=== PATIENT | male | born 1940 | race Caucasian/White ===

== ENCOUNTER 2016-12-12 14:12 | Emergency (ER) | payer MEDICARE, OTHER ==
[~2016-12-12] VITALS: Ht 167.6 cm; Wt 59.0 kg
[~2016-12-12 14:12] MED LIST: ALEVE220 M1 PO; B-121000 MC1 SL; BIOTIN5 MG PO; CENTRAL VITE F1 EACH PO; COQ-10100 MG PO; D3 + K2 DOTS 11 EACH PO; DEPAKOTE500 MG PO; DIVALPROEX SOD250 MG PO; KEFLEX500 MG PO; LEVOTHYROXINE50 MCG PO; NATURAL LUTEIN20 MG PO; NORCO 5-325 TA1 EACH PO; OMEPRAZOLE20 MG PO
[2016-12-12] MEDS ORDERED: DURAGESIC1 EACH TD (14:27)
[2017-03-09] MEDS ORDERED: CLARITIN10 MG PO (15:05)
== END 2016-12-12 21:47 | disposition home or self-care (01) ==
LOC: ED 14:12
DX: G50.0 Trigeminal neuralgia (principal); E78.00 Pure hypercholesterolemia, unspecified; K21.9 Gastro-esophageal reflux disease without esophagitis; E03.9 Hypothyroidism, unspecified; Z79.899 Other long term (current) drug therapy
CPT/HCPCS: 80053; 85025; 96361; 96374; 99283; J7030

== ENCOUNTER 2017-02-09 10:11 | Inpatient (IN) | payer MEDICARE, OTHER ==
[~2017-02-09] VITALS: Ht 167.6 cm; Wt 56.1 kg
[~2017-02-09 10:11] MED LIST changes: +DURAGESIC1 EACH TD
--- NOTE | 2017-02-09 14:20 | NUR ---
PT ARRIVED TO ROOM 111 AT THIS TIME. PT REPORTS DISCOMFORT FROM RIGHT EYE AT THIS TIME, MILD. TWO PERSON ASSIST FROM WHEELCHAIR TO BED, WITH TWO CANES.
--- NOTE | 2017-02-09 14:51 | NUR ---
DR. ARMENDARIZ IN TO SEE PATIENT.
[2017-02-09] MEDS ORDERED: LIQUITEARS15 ML OD (15:04)
[2017-02-09] MEDS ORDERED: LOVENOX40 MG/0.4 SUB-Q (15:09)
[2017-02-09] MEDS ORDERED: OXYCODONE HCL5 MG PO (15:10)
[2017-02-09] MEDS ORDERED: SENNA-DOCUSATE1 EAC1 PO (15:11)
[2017-02-09] MEDS ORDERED: ADVANCED EYE R3.5 GM OPTH (15:15)
[2017-02-09] MEDS ORDERED: TYLENOL325 MG PO (15:17)
[2017-02-09] MEDS ORDERED: VITAMIN C500 M1 PO (15:18)
--- NOTE | 2017-02-09 15:19 | NUR ---
MED REC COMPLETE WITH [facility] DISCHARGE NOTE.
--- NOTE | 2017-02-09 15:28 | NUR ---
EYE DROPS INSTILLED IN RIGHT EYE. PATIENT TOLERATED WELL, RESTING IN BED, DENIES NEEDS AT THIS TIME.
--- NOTE | 2017-02-09 15:30 | NUR ---
PT DOING WELL JUST GOT CHECKED IN BY NURSE MICAELA
--- NOTE | 2017-02-09 16:27 | NUR ---
SPEECH THERAPY IN TO EVALUATE PATIENT. PATIENT IS OKAY TO STAY ON SOFT DIET WITH THIN LIQUIDS. OKAY TO USE STRAW. OCCUPATIONAL THERAPY AND PHYSICAL THERAPY IN TO EVALUATE PATIENT.
--- NOTE | 2017-02-09 17:32 | NUR ---
PATIENT ARRIVED FROM [facility] TODAY. PATIENT IS DOING WELL AND DENYING NEED FOR PAIN MEDICATION. PATIENT PASSED SWALLOW EVALUATION AND HAS ORDERED A SOFT DIET FOR DINNER. PATIENT HAS CLOTHES TO WEAR AND HAS REQUESTED ATTENDS TO BE PROVIDED. WALKER IN ROOM TO USE IN PLACE OF PATIENT'S USUAL DUAL CANES. 1700 SENNOKOT GIVEN WITH SIP OF WATER AND PATIENT TOLERATED WELL WITH NO COUGHING.
--- NOTE | 2017-02-09 17:53 | NUR ---
PATIENT CHANGED INTO HOME CLOTHES, FRESH ATTENDS. PATIENT VOIDED IN URINAL WITH HELP. 1-2 ASSIST WITH WALKER. PATIENT SITTING UP IN CHAIR FOR DINNER.
--- NOTE | 2017-02-09 18:47 | NUR ---
PT IN CHAIR. SET UP FOR DINNER.
--- NOTE | 2017-02-09 20:45 | NUR ---
pt appeared asleep when entering room. pt woke to rn in room. stated "i have been sleeping really well all night," oriented pt to time, pt oriented easily. no complaints of pain or headache at this time. changed attends and bedding, pt incontinent of urine and bm. pt has fresh water at bedside. call light in reach. lights and tv off in room.
--- NOTE | 2017-02-09 23:42 | NUR ---
changed pt's attends, pt incontinent of urine. pt also complained of 5/10, gave tylenol for pain. pt has no further needs. call light in reach. lights and tv off in room.
--- NOTE | 2017-02-09 23:44 | NUR ---
URINE INCONTINENT ATTENDS CHANGED.
--- NOTE | 2017-02-10 02:37 | NUR ---
PT APPEARS ASLEEP. LIGHTS AND TV OFF IN ROOM.
--- NOTE | 2017-02-10 03:24 | NUR ---
PATIENT CALLED WANTED TO BE CHANGED WET ATTENDS, DONE. CALL LIGHT WITHIN REACH.
--- NOTE | 2017-02-10 05:11 | NUR ---
PT HAD UNEVENTFUL NIGHT. SLEPT MAJORITY OF SHIFT. EYE DROPS Q2H WHILE AWAKE. HEADACHE PAIN WELL CONTROLLED WITH TYLENOL. BM LAST NIGHT. INCONTINENT OF URINE. PT ALERT AND ORIENTED BUT FORGETFUL AT TIMES, REORIENTS EASILY. USES CALL LIGHT APPROPRIATLY. PT/OT/ST. EYE PATCH TO RIGHT EYE. INCISION BEHIND RIGHT EAR APPEARS TO BE HEELING WELL AND IS WELL APPROXIMATED. 1 PERSON ASSIST.
--- NOTE | 2017-02-10 05:31 | NUR ---
PATIENT CALLED. CHANGED WET ATTENDS.
--- NOTE | 2017-02-10 06:47 | NUR ---
changed attends, pt incontinent of urine. eye drops administered.
--- NOTE | 2017-02-10 06:49 | NUR ---
PATIENT CALLED. CHANGED WET ATTENDS.
--- NOTE | 2017-02-10 07:15 | NUR ---
RECIEVED REPORT FROM MECHANIC MARINE ENGINE NURSE. PATIENT RESTING SUPINE IN BED. DENIES NEEDS AT THIS TIME. CALL LIGHT IN REACH.
--- NOTE | 2017-02-10 08:54 | NUR ---
CARE CONFERENCE TEAM IN TO SEE PATIENT. PATIENT HAVING BREAKFAST & REQUESTS FOR PAIN MEDICAITON. TYLENOL GIVEN. CALL LIGHT IN REACH.
--- NOTE | 2017-02-10 09:51 | NUR ---
FAXED ACTIVITY ASSESSMENT NOTICE TO SIMON HERNANDEZ PT
--- NOTE | 2017-02-10 10:11 | NUR ---
PATIENT RESTING UP IN CHAIR. PATIENT CHANGED FOR URINARY INCONTINENCE. STATES HE IS STILL HAVING SOME PAIN AROUND HIS INCISION AND IN HIS R EAR. PATIENT DENIES THE NEED FOR MORE PAIN MEDICATION. LUNGS CLEAR, HR REGULAR, BS ACTIVE. PATIENT DENIES FURTHER NEEDS. CALL LIGHT IN REACH.
--- NOTE | 2017-02-10 10:15 | NUR ---
PATIENT SITTING UP IN CHAIR WITH EYES CLOSED. CALL BUTTON IN REACH. FRESH ICE WATER. TALKED TO PATIENT ABOUT A SHAVE AND SHOWER LATER TODAY. NO OTHER NEEDS AT THIS TIME.
--- NOTE | 2017-02-10 10:37 | NUR ---
PHYSICAL THERAPY IN TO SEE PATIENT.
--- NOTE | 2017-02-10 11:47 | NUR ---
PATIENT SITTING UP IN CHAIR WITH EYE CLOSED.
--- NOTE | 2017-02-10 12:41 | NUR ---
PATIENT UP IN CHAIR EATING LUNCH W/O DIFFICULTY. CALL LIGHT IN REACH.
--- NOTE | 2017-02-10 13:32 | NUR ---
PATIENT RESTING IN CHAIR. PATIENT EXPRESSED THAT HE HAS BEEN FEELING DEPRESSED LATELY. SAT AND TALKED WITH PATIENT FOR ABOUT 20 MINUTES UNTIL OCCUPATIONAL THERAPY CAME IN TO WORK WITH HIM. TYLENOL ADMINISTERED FOR 2/10 PAIN NEAR INCISION SITE. CALL LIGHT IN REACH.
--- NOTE | 2017-02-10 13:48 | NUR ---
SPEECH THERAPY WORKING WITH PATIENT.
--- NOTE | 2017-02-10 14:26 | NUR ---
ASSISTED PT TO BATHROOM. PATIENT CONTINENT OF URINE. NEW BRIEF PLACED ALTHOUGH OLD ONE WAS DRY. THE PLAN WAS TO GO FOR A WALK AROUND THE MS UNIT, HOWEVER THE PATIENT DEVELOPED PAIN IN HIS R EAR. STATES THE PAIN FEELS LIKE THROBBING PAIN. ADMINISTERED PAIN MEDICATION PER MAR. PATIENT BACK IN CHAIR. CALL LIGHT IN REACH. DENIES FURTHER NEEDS.
--- NOTE | 2017-02-10 14:43 | NUR ---
PATIENT RESTING WITH EYES CLOSED. RESPIRATIONS EVEN UNLABORED.
--- NOTE | 2017-02-10 14:48 | NUR ---
PATIENT SLEEPING UP IN CHAIR. CALL LIGHT IN REACH.
--- NOTE | 2017-02-10 15:11 | NUR ---
PATIENT HAS HAD SEVERAL PEOPLE INTO WORK WITH HIM TODAY. PATIENT NOW RESTING WITH HIS EYES CLOSED.
--- NOTE | 2017-02-10 15:27 | NUR ---
PATIENT RESTING UP IN CHAIR. SON IN ROOM VISITING. PATIENT STATES HIS PAIN IS WELL CONTROLLED AFTER PAIN MEDICATION. DENIES NEEDS. CALL LIGHT IN REACH.
--- NOTE | 2017-02-10 15:49 | NUR ---
PHYSICAL THERAPY IN TO WORK WITH PATIENT.
--- NOTE | 2017-02-10 16:30 | NUR ---
ORDERED PATIENT DINNER. OFFERED TO ASSIST WITH SHOWER, PATIENT REFUSED AND STATES HE WOULD RATHER TAKE ONE TOMORROW. NO C/O PAIN. PATIENT DENIES FURTHER NEEDS.
--- NOTE | 2017-02-10 16:40 | NUR ---
PATIENT HAS BEEN TEARFUL TODAY, IN BETTER SPIRITS THIS EVENING. WORKED WELL WITH PHYSICAL THERAPY X 2 TODAY. PATIENT HAS BEEN DOING WELL WITH HIS TWO CANES. TYLENOL GIVEN FOR PAIN X 3 TODAY, OXYCODONE GIVEN X 1. PAIN IS LOCATED NEAR INCISION AND IN R EAR. PATIENT WOULD LIKE TO SHOWER TOMORROW INSTEAD OF THIS EVENING.
--- NOTE | 2017-02-10 18:43 | NUR ---
ASSISTED PT TO BATHROOM. BRIEF FOUND DRY. PATIENT VOIDED. PATIENT NOW IN BED. DENIES NEEDS. SPOUSE IN TO VISIT.
--- NOTE | 2017-02-10 19:30 | NUR ---
TYLENOL GIVEN FOR 6/10 PAIN. PT LAYING IN BED, PLEASENT DEMEANOR, FLAT AFFECT. ALERT AND ORIENTED X4. EYE DROPS ADMINISTERED. PT REPORTS THE PAIN IS IN THE RIGHT SIDE OF HIS HEAD BUT MOSTLY IN HIS RIGHT EAR. PT HAS CALL LIGHT. FRESH ICE WATER AT BEDSIDE.
--- NOTE | 2017-02-10 20:00 | NUR ---
patient incontinent of urine, changed depend. whiteboard updated, room tidied. declined fresh ice water at this time.
--- NOTE | 2017-02-10 20:05 | NUR ---
PT STOOD AT BEDSIDE AND VOIDED IN URINAL. PT TOLERATED STANDING WELL. PT BACK IN BED.
--- NOTE | 2017-02-10 21:40 | NUR ---
patient called to say top of his head hurts, raised head of bed and told him to call if it doesn't get better. nurse notified
--- NOTE | 2017-02-10 22:10 | NUR ---
PT COMPLAINED OF 8/10 PAIN IN HIS RIGHT EAR. GAVE OXYCODONE FOR PAIN. EYE PATCH IN PLACE. EYE DROPS ADMINISTERED.
--- NOTE | 2017-02-10 22:30 | NUR ---
PATIENT INCONTINENT OF URINE AND STOOL. CHANGED DEPEND AND PERFORMED VASQUEZ CARE.
--- NOTE | 2017-02-10 22:40 | NUR ---
PATIENT INCONTINENT OF URINE. CHANGED DEPEND, PERFORMED VASQUEZ CARE. BOOSTED PATIENT UP IN BED.
--- NOTE | 2017-02-10 23:57 | NUR ---
patient asleep in room doing well.
--- NOTE | 2017-02-11 02:05 | NUR ---
PT APPEAR TO BE SLEEPING. RR WNL AND UNLABORED. LIGHTS AND TV OFF IN ROOM.
--- NOTE | 2017-02-11 02:27 | NUR ---
PATIENT IN BED ASLEEP
--- NOTE | 2017-02-11 02:54 | NUR ---
pt incontinent of urine. cleaned pt up and changed attends. pt had smear bm. re-positioned pt. pt has no further needs. call light in reach.
--- NOTE | 2017-02-11 02:56 | NUR ---
NURSE IN ROOM
--- NOTE | 2017-02-11 03:52 | NUR ---
NURSE IN ROOM
--- NOTE | 2017-02-11 04:38 | NUR ---
PATIENT CALLED TO HAVE TV TURNED DOWN
--- NOTE | 2017-02-11 05:20 | NUR ---
pt complained of 8/10 pain in his right ear, gave oxycodone for pain. pt incontinent of urine, changed attends. re-positioned pt in bed. call light in reach. no further needs.
--- NOTE | 2017-02-11 06:43 | NUR ---
PT SLEPT MOST OF SHIFT. GAVE OXYCODONE FOR PAIN X2, SEEMS TO WORK WELL FOR HIM. PT DEPRESSED ABOUT HIS CONDITION, GETS TEARY EYED OFTEN. INCONTINENT OF URINE AND BM. 1 PERSON ASSIST WITH 2 CANES TO AMBULATE, WORKED WITH PHYSICAL THERAPY YESTERDAY PER DAYSHIFT RN. PT ALERT AND ORIENTED X4. PLEASENT DEMEANOR BUT FLAT AFFECT.
--- NOTE | 2017-02-11 07:19 | NUR ---
RECIEVED REPORT FROM CATERERS HELPER NURSE. PATIENT RESTING IN BED. INCONT OF URINE. DISH ROOM WORKER ASSISTED PATIENT WITH BRIEF CHANGE AND PERICARE. PATIENT NOW SITTING UP IN CHAIR WAITING ON BREAKFAST. DENIES NEEDS AT THIS TIME. CALL LIGHT IN REACH.
--- NOTE | 2017-02-11 07:32 | NUR ---
pt. was incontinent of urine, changed his linen and got him up to his chair for breakfast. Put his sweatpants on, got him fresh ice water and a warm blanket
--- NOTE | 2017-02-11 08:30 | NUR ---
REPOSITIONED PATIENT ON L SIDE IN CHAIR. BLANCHABLE REDNESS NOTED ON COCCYX. FINE CRACKLES HEARD IN L LUNG BASE, ENCOURAGED INCENTIVE SPIROMETER, PATIENT ABLE TO REACH 1500ML. TRACE EDEMA ON R FOOT, +1 ON L FOOT. ENCOURAGED PATIENT TO KEEP BLE ELEVATED. PATIENT C/O PAIN IN R EAR-HE HAS TROUBLE EXPLAINING WHAT THE PAIN FEELS LIKE. STATES IT FEELS LIKE THERE IS WATER IN HIS HEAD NEAR HIS EAR. TYLENOL ADMINISTERED. ENCOURAGED PATIENT TO USE CALL LIGHT IF TYLENOL DOES NOT TREAT HIS PAIN. CALL LIGHT IN REACH.
--- NOTE | 2017-02-11 09:43 | NUR ---
PT IS SITTING UP IN CHAIR WITH FEET ELEVATED AND CALL LIGHT IN REACH. PT WASHED FACE AND HANDS WITH A WARM WASH CLOTH. PT ALSO BRUSHED TEETH AND USED MOUTH WASH. PT AGREED TO A SHOWER BUT WOULD LIKE TO WAIT TILL 1100
--- NOTE | 2017-02-11 10:45 | NUR ---
AMBULATED WITH PATIENT DOWN HALLWAY WITH GAIT BELT. PATIENT STATES HE FEELS A BIT UNSTEADY TODAY. C/O THROBBING PAIN 10/08 DIRECTLY BEHIND INCISION. ADMINISTERED PAIN MEDICATION PER APR. PATIENT BACK TO CHAIR WITH PILLOWS POSITIONED TO KEEP HIM OFF HIS COCCYX. WAITING FOR PAIN MEDICATION TO TAKE EFFECT BEFORE SHOWER. PATIENT DENIES FURTHER NEEDS. CALL LIGHT IN REACH.
--- NOTE | 2017-02-11 11:44 | NUR ---
PATIENT UP IN CHAIR HAVING LUNCH. NO C/O PAIN AT THIS TIME. CALL LIGHT IN REACH.
--- NOTE | 2017-02-11 12:39 | NUR ---
FRIEND IN TO VISIT. PATIENT UP IN CHAIR. MEAL TRAY REMOVED, PATIENT ATE ABOUT 25%. DENIES NEEDS AT THIS TIME. CALL LIGHT IN REACH.
--- NOTE | 2017-02-11 13:48 | NUR ---
PATIENT UP TO SHOWER WITH ASSISTANCE. AMBULATED HALLWAY WITH WALKER AND THEN CANES. ONCE BACK TO THE ROOM, PATIENT C/O THROBBING PAIN R SIDE HEAD BEHIND INCISION. TYLENOL ADMINISTERED. PATIENT SITTING UP IN CHAIR, PILLOWS PLACED TO KEEP PRESSURE OFF COCCYX, REDNESS HAS REDUCED SINCE THIS MORNING. PATIENT VOIDED IN URINAL. DENIES FURTHER NEEDS. CALL LIGHT IN REACH.
--- NOTE | 2017-02-11 15:13 | NUR ---
PATIENT RECIEVING FACIAL MASSAGE. SPOUSE AT BEDSIDE. PATIENT DENIES NEEDS.
--- NOTE | 2017-02-11 15:18 | NUR ---
PT IS SITTING UP IN CHAIR WITH CALL LIGHT IN REACH. PT ASKED FOR ICE WATER.
--- NOTE | 2017-02-11 15:55 | NUR ---
PATIENT STOOD AT THE SIDE OF THE CHAIR AND WET ATTEND CHANGED AT THIS TIME. PATIENT NEEDED A 1 PERSON ASSIST ONLY.
--- NOTE | 2017-02-11 16:25 | NUR ---
PATIENT WORKING WITH PHYSICAL THERAPY AT THIS TIME. AMBULATING HALLWAY.
--- NOTE | 2017-02-11 17:19 | NUR ---
PATIENT C/O PAIN 5/10 BEHIND INCISION AND R EAR. STATES THE PAIN IS THROBBING. I HAVE NOTICED PATIENT COMPLAINS OF PAIN MOSTLY AFTER ACTIVITY. ADMINISTERED PAIN MEDICATION PER MAR. TOILETING OFFERED. ENCOURAGED ORAL FLUIDS. ADMINISTERED EYE DROPS. PATIENT DENIES FURTHER NEEDS.
--- NOTE | 2017-02-11 17:41 | NUR ---
PATIENT WAS TEARFUL AGAIN TODAY, DOING BETTER THIS EVENING. PATIENT HAS NOT BEEN TAKING IN MUCH FLUIDS, VOIDING SMALL AMOUNT. DRANK A GOOD AMOUNT FOR DINNER. HE HAS BEEN INCONT. X1 ALL DAY. OXYCODONE GIVEN X 2. PAIN INCREASES WITH ACTIVITY. AMBULATED HALLS WITH PT AND MYSELF. USES CANES WELL. WALKER IN ROOM. VS STABLE. EYE DROPS IN ROOM.
--- NOTE | 2017-02-11 17:50 | NUR ---
PT ASKED TO HAVE HIS BRIEF CHECKED. PT WAS INCONTINENT OF URINE AND WAS CHANGED. PT IS NOW SITTING UP IN CHAIR WITH FEET ELEVATED AND CALL LIGHT IN REACH. PT ASKED TO BE REPOSISTIONED HIGHER IN CHAIR.
--- NOTE | 2017-02-11 18:45 | NUR ---
ASSISTED PATIENT TO BATHROOM. PATIENT INCONT OF URINE. CHANGED BRIEF, PERFORMED PERICARE. MINIMAL REDNESS TO COCCYX. BACK TO BED. REPOSITIONED ON L SIDE. REFILLED WATER PITCHER. PATIENT DENIES FURTHER NEEDS.
--- NOTE | 2017-02-11 19:15 | NUR ---
SHIFT REPORT RECIEVED. PATIENT RESTING IN BED. PATIENT REQUEST PRN EYE DROPS AND EYE PATCH. DAY SHIFT RN ADMINISTERED THESE FOR THE PATIENT. HE DENIED FURTHER NEEDS. CALL LIGHT IN REACH.
--- NOTE | 2017-02-11 20:15 | NUR ---
PATIENT AMBULATED IN THE HALLWAY WITH STACY ARMENDARIZ. 1PA W/FWW.
--- NOTE | 2017-02-11 21:20 | NUR ---
PATIENT REPORTS 3/10 PAIN IN HIS HEAD ON THE RIGHT SIDE BEHIND HIS EAR. PRN TYLENOL PROVIDED. PATIENT RESTING IN RECLINER EATING A SNACK. HE DENIES ANY OTHER NEEDS AT THIS TIME. CALL LIGHT IN REACH.
--- NOTE | 2017-02-11 22:05 | NUR ---
PATIENT REQUEST ASSISTANCE TO THE BATHROOM. STACY MAY ASSISTED PATIENT TO BATHROOM AND THEN INTO BED. PM CARE PERFORMED.
--- NOTE | 2017-02-12 00:09 | NUR ---
PATIENT REPORTS HEAD PAIN HAS NOT IMPROVED. PRN PAIN MEDS GIVEN. EYE DROPS ADMINISTERED. EYE PATCH IN PLACE. REPOSITIONED TO LEFT SIDE. PATIENT DENIES TOILETING NEEDS. CALL LIGHT IN REACH.
--- NOTE | 2017-02-12 02:30 | NUR ---
NETWORK OPERATIONS SPECIALIST ASSISTED PATIENT TO THE BATHROOM. NO FURTHER NEEDS AT THIS TIME.
--- NOTE | 2017-02-12 04:45 | NUR ---
REPORTING DEVELOPER VALENTÍN ASSISTED PATIENT WITH USE OF URNAL.
--- NOTE | 2017-02-12 07:15 | NUR ---
report given from carolina waggoner. patient sleeping. rr even and unlabored. eye patch in place. call light within reach.
--- NOTE | 2017-02-12 08:00 | NUR ---
breakfast brought in patients room. patient sat up with hob elevated to 90 degrees. breakfast put in front of patient. pt stating he would like some eye drops as well as he was ready for some pain medication. patient discribed the pain as a constant ache that never really goes away. patient stating the pain medication helps a little, but it just dulls the ache. patients has eye patch in place. eye drops given. facial droop noted on r side. patient unable to close on his own. patient request that the eye patch stay on top of his eye lid. patient talked with me about home situation and how he lives with his . patient oriented and able to follow all commands. patient swallowing well. tolerating taking his pills with a small spoon and pudding. no cough or trouble with his diet. jessika in room. plan to take shower when gets to room. informed patient that I will be back to do more of an assessment once he is done eating.
--- NOTE | 2017-02-12 09:29 | NUR ---
PT IS SITTING UP IN CHAIR SAFELY WITH CALL LIGHT IN REACH. PT WASHED FACE AND HANDS WITH A WARM WASH CLOTH.
--- NOTE | 2017-02-12 11:17 | NUR ---
patient sitting in chair. resting comfortable. patient showered and dressed self. ot reported that patient did well. participating in a lot of activity by himself
--- NOTE | 2017-02-12 11:31 | NUR ---
GOT PATIENT AN CLEAR ENSURE PATIENT LIKES IT.
--- NOTE | 2017-02-12 11:48 | NUR ---
SET UP FOR LUNCH. PATIENT SITTING IN CHAIR. PATIENT IN GOOD SPIRITS. STATING HE WAS GOING TO HAVE VISITORS. VERY EXCITED AND LOOKING FORWARD TO HIS VISITORS. GUY AND ABRAHAM BROUGHT TO ROOM FOR LUNCH. PATIENT SAT UP WELL IN CHAIR. WARM BLANKER PLACED ON LEGS AND TO THE BACK OF NECK FOR COMFORT. EYE DROPS DONE.
--- NOTE | 2017-02-12 13:04 | NUR ---
NURSE AND I WALKED WITH PATIENT 2 LAPS AROUND THE MED SURG. NOW HE IS SITTING UP IN CHAIR LOOKING OUT THE WINDOW.
--- NOTE | 2017-02-12 13:15 | NUR ---
patient walked two laps in [place]. patient ambulated one lap with walker and the next lap with canes. patient tolerated very well. assisted to the br. patient voided and assisted back to chair. faced the window so he could watch the snow fall.
--- NOTE | 2017-02-12 13:30 | NUR ---
patient up with pt. working in treatment room and in [place]
--- NOTE | 2017-02-12 14:00 | NUR ---
snack brought into room per requset.
--- NOTE | 2017-02-12 14:07 | NUR ---
PT UP WALKING WITH RN AND THEN WITH P.T. HE SEEMS TO BE ENJOYING BEING UP-STARTED FIRST WITH WALKER, THEN TO 2 CANES. HE SEEMED EXCITED. HE RESPONDED WHEN TALKED TO. WILL CONTINUE TO VISIT
--- NOTE | 2017-02-12 16:00 | NUR ---
in room. patient is sitting up in chair. both are talking. call light within reach. curtain open.
--- NOTE | 2017-02-12 16:17 | NUR ---
patient called to go to the br. patient ambulated with canes to br. tolerating well. patient requesting to change into new clothing that brought in. assisted with changing. patient assisting with dressing self. assisted back to chair.patient reports pain okay at this time. dinner ordered. eye drops given.
--- NOTE | 2017-02-12 16:41 | NUR ---
patient ambulated in [place]. tolerating. not as strong as he was this morning. walk half the hallway length. assisted back to bed. patient stating his neck was starting to throb. 2.5mg oxy given. toll booth operator in room to assist patient with shaving. warm blanket given to patient.
--- NOTE | 2017-02-12 16:43 | NUR ---
patient ambulated in the [place] several times today. using his canes and walker. oxy 2.5mg prn for pain. given x2. patient tolerating soft diet. takes pudding with pills. calls well. 1 assist with ambulation. pt, ot, and st in with patient today. patient showered and changed into new clothing. plan of care is to continue therapy and discharge home with .
--- NOTE | 2017-02-12 16:52 | NUR ---
SHAVED PATIENT. NOW SITTING IN HIS CHAIR RELAXING BEFORE DINNER.
--- NOTE | 2017-02-12 16:52 | NUR ---
ensure given to patient. patient tolerating ensure clear well. encouraged to take in more po
--- NOTE | 2017-02-12 18:17 | NUR ---
PT IS SITTING UP IN CHAIR SAEFLY WITH CALL LIGHT IN REACH. PT DID NOT NEED ANYTHING AT THE MOMENT
--- NOTE | 2017-02-12 19:00 | NUR ---
SHIFT REPORT RECIEVED. PATIENT RESTING IN RECLINER, EYES CLOSED. EYE PATCH ON RIGHT SIDE. CALL LIGHT IN REACH.
--- NOTE | 2017-02-12 20:40 | NUR ---
MANOMETER TECHNICIAN RECENTLY ASSISTED THE PATIENT TO THE BATHROOM, PERFORMED PM CARE AND PUT ASSISTED PATIENT INTO BED. PATIENT IS AAOX3, HOWEVER HE DOES ANSWER QUESTIONS INAPPROPRIATE AT TIMES. WHEN THE SAME QUESTION IS RE-WORDED HE CAN THEN ANSWER APPROPRIATELY. PATIENT MIGHT BE HARD OF HEARING, BUT HE CLAIMS THAT HE CAN HEAR WELL. PATIENT HAS RIGHT SIDED FACIAL DROOL AND NO CONTROL OF THE USE OF HIS RIGHT EYE LID. 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 PATIENT STATES HIS RIGHT EYE IS IRRITATED DROPS WERE ADMINISTERED PER ORDER. LUNG SOUNDS ARE CLEAR, DIMINISHED IN THE BASES. PATIENT PERFORMED IS X3 AND ACCAPELLA X3, IT TAKES MULTPILE TRIES FOR THE PATIENT TO BE ABLE TO FORM A SEAL AROUND THE MOUTH PIECE. ABD IS SOFT AND NONTENDER, APPETITE IS GOOD. OFFERED WATER AND SNACK, PATIENT DENIED AT THIS TIME. BOWEL SOUNDS ACTIVE. CMS INTACT, BUT PATIENT REPORTS THAT THE SENSATION IN HIS LOWER EXTREMITIES IS DECREASED BILATERALLY. NO NUMBNESS OR TINGLING. HEEL PROTECTORS PUT IN PLACE. FLOATED PATIENT'S HIPS ON TWO PILLOWS. NO FURTHER NEEDS AT THIS TIME. CALL LIGHT IN REACH. PATIENT RESTING, WATCHING TV.
--- NOTE | 2017-02-12 22:13 | NUR ---
PATIENT RESTING IN BED. CALLED FOR PAIN MEDICATION. STATES HIS PAIN IS ON THE R SIDE OF HIS HEAD, BEHIND HIS R EYE AND TOP OF HEAD. PAIN MEDICATION ADMINISTERED. ASSISTED PATIENT TO BATHROOM. INCONT. OF URINE. BACK TO BED. HEEL PROTECTORS IN PLACE. CALL LIGHT IN REACH. PATIENT DENIES FURTHER NEEDS.
--- NOTE | 2017-02-13 01:05 | NUR ---
CHANGED PATIENT FOR EPISODE OF URINARY INCONT., PERICARE PERFORMED, BRIEF CHANGED. PATIENT ALSO C/O PAIN 8/ ON THE R SIDE OF HIS HEAD. STATES IT IS WORSE THAN IT WAS LAST NIGHT. OXYCODONE ADMINISTERED PER APR. PATIENT DENIES FURTHER NEEDS. CALL LIGHT IN REACH.
--- NOTE | 2017-02-13 03:00 | NUR ---
DIMENSIONAL ENGINEER MAY ASSISTED PATIENT WITH TOILETING
--- NOTE | 2017-02-13 04:09 | NUR ---
PATIENT RESTING IN BED. EYES CLOSED. RR 15.
--- NOTE | 2017-02-13 05:04 | NUR ---
PATIENT RESTED WELL THROUGHOUT SHIFT. AAOX3, BUT RESPONDS INAPPROPRAITEY AT TIMES. 1PA W.FWW TO BATHROOM. NO IV ACCESS. ENCOURAGED PO INTAKE. EYE DROPS Q2H WHEN AWAKE AND EYE MASK ON RIGHT EYE WHEN SLEEPING. MAINTAIN HEAD ABOVE LEVEL OF THE HEART. PRN PAIN MEDS X2 FOR RIGHT SIDE HEAD PAIN.
--- NOTE | 2017-02-13 06:14 | NUR ---
PATIENT RESTING IN BED. DENIES NEEDS AT THIS TIME. NO VASQUEZ CARE REQUIRED. CALL LIGHT IN REACH.
--- NOTE | 2017-02-13 07:45 | NUR ---
AM CARE. FRESH ICE WATER. WET WASH CLOTH.
--- NOTE | 2017-02-13 08:58 | NUR ---
RECIEVED REPORT FROM OMER @ 0555 AT BEDSIDE. PAIN 06/08 ADMINISTER PRN OXYCODONE. ADMINISTERED 2 EYE DROPS IN RIGHT EYE FOR COMFORT. MORNING MEDICATION GIVEN WHOLE IN PUDDING. PT A/O UP IN BED FOR BREAKFAST. CALL LIGHT AND PERSONAL ITEMS WITHIN REACH.
--- NOTE | 2017-02-13 09:54 | NUR ---
PATIENT UP IN CHAIR AFTER PHYSICAL THERAPY, HE HAS USED THE RESTRROM, AND WE TOOK THE TRAY OUT OF HIS ROOM, AND WASHED HIS SPOONS HE USES TO EAT.
--- NOTE | 2017-02-13 11:00 | NUR ---
PT UP IN CHAIR. READING NEWSPAPER.CALL LIGHT AND PERSONAL ITEMS WITHIN REACH. PAIN 2/10 AFTER PRN PAIN MEDICATION GIVE.
--- NOTE | 2017-02-13 12:53 | NUR ---
pt up in bed. administered eye drops to right eye. on phone with . call light and personal items within reach. no pain.
--- NOTE | 2017-02-13 13:35 | NUR ---
PT DOING WELL DID VITALS. NOW WANTS TO TAKE A NAP
--- NOTE | 2017-02-13 14:42 | NUR ---
REPORT GIVEN FROM MALCOM MACIAS. VIVIANA CURRENTLY RESTNG IN BED. CALL LIGHT WITHIN REACH.
--- NOTE | 2017-02-13 15:29 | NUR ---
patient pushed call light he had to use the restroom, and we got him freshened up for his visitors that are coming, i made up his bed and offered him fresh ice water he didnt want any at this time, he requested a bit of pain medication, and a few eye drops in his eyes.
--- NOTE | 2017-02-13 15:42 | NUR ---
pt un in chair. pain 08/08. administered prn pain medication. helped pt back to bed. call light within reach. personal items within reach.
--- NOTE | 2017-02-13 16:00 | NUR ---
PT UP TO BATHROOM. WALKING WELL WITH FFW AND STAND BY ASSIST. DAUGHTER AT BEDSIDE. BAVCK TO CHAIR AND WARM BLANKET PROVIDED FOR COMFORT. CALL LIGHT IN REACH. PERSONAL ITELMS WITHIN REACH. PAIN 05/08. TYLENOL GIVEN.
--- NOTE | 2017-02-13 16:31 | NUR ---
PATIENT RECIEVED A FEW ANTICIPATED VISITORS AND IS VERY HAPPY ABOUT THE COMPANY
--- NOTE | 2017-02-13 17:46 | NUR ---
ANAHI CHAND PATIENT WAS STILL EATING WITH HIS VISITORS IN THE ROOM, I TOLD HIM I WOULD CHECK BACK IN A BIT TO SEE IF HE WAS FINISHED HE NEEDED NO OTHER ASSISTANCE AT THIS TIME.
--- NOTE | 2017-02-13 17:56 | NUR ---
PT COMFORTABLE ALL DAY. PAIN LEVEL RANGING FROM 6-4. CONTROLLED WITH PRN OXYCODONE 2.5MG X2. SBA. ATTENDS IN PLACE. NO IV ACCESS. ENCOURAGE PO INTAKE. OFFER ENSURES TO ENCOURAGE WEIGHT GAIN. EYE DROPS Q2H AND PRN IN RIGHT EYE. KEEP HEAD ABOVE THE LEVEL OF THE HEART TO KEEP PREASURE ON WOUND BEHIND RIGHT EAR LOW. PILLS GIVEN IN PUDDING WITH SPECIAL SPOON LOCATED AT BEDSIDE. VSS. SOFT DIET. SWING BED PT.
--- NOTE | 2017-02-13 19:11 | NUR ---
SHIFT REPORT RECIEVED. PATIENT HAS FAMILY IN THE ROOM. HE REPORTS PAIN IN THE RIGHT SIDE OF HIS HEAD AND REQUEST PRN PAIN MEDS. PATIENT DENIES FURTHER NEED.
--- NOTE | 2017-02-13 19:40 | NUR ---
PRN TYLENOL PROVIDED FOR 3/10 PAIN IN THE RIGHT SIDE OF THE HEAD. PATIENT'S FAMILY IS IN ROOM. MUSIC PROFESSIONALS ASSISTED PATIENT TO THE BATHROOM. NOW PATIENT IS POSITIONED IN THE BED WITH HIS HIPS FLOATED AND HEEL PROTECTORS ON. PATIENT STATES HE WILL HAVE TO "FEEL IT FOR A WHILE" BEFORE HE KNOWS HE IS COMFORTABLE. WILL REASSESS. ENSURE PROVIDED TO PATIENT IN CUP WITH STRAW. EYE DROPS ADMINISTERED. PATIENT DENIES FURTHER NEEDS. PATIENT ROOM CLEANED UP WITH DINNER TRAY REMOVED. FAMILY DENIES NEEDS OR QUESTIONS AT THIS TIME.
--- NOTE | 2017-02-13 21:02 | NUR ---
PATIENT RESTING IN BED, EYE PATCH IN PLACE. EYES CLOSED. FAMILY HAS WENT HOME FOR THE EVENING. TURNED DOWN LIGHTS IN ROOM. CALL LIGHT IN PATIENT'S HAND. HOB ELEVATED.
--- NOTE | 2017-02-13 21:50 | NUR ---
VITAL SIGNS COMPLETE. ORAL TEMP OF 99.1 F. ASSISTED PATIENT TO THE BATHROOM. SBA W/FWW. PATIENT TOLERATED WELL. PATIENT HAD BEEN INCONTINENT. CLOTHES AND ATTENDS CHANGED. PATIENT BACK IN BED. ENCOURAGED COUGH AND DEEP BREATHING. PATIENT USES IS X3. ORAL TEMP WAS THEN FOUND TO BE 99.0 F. WILL CONTINUE TO MONITOR.
--- NOTE | 2017-02-13 22:22 | NUR ---
PATIENT REPORTS INCREASED PAIN IN THE RIGHT SIDE OF HIS HEAD/NECK. PATIENT STATES THAT HE HAS BEEN RATING HIS PAIN A 2-3/10 BECAUSE HE DID NOT UNDERSTAND THE PAIN SCALE. RN EDUCATED PATIENT. HE REPORTS THAT HE BELIEVES HIS PAIN TO BE AT AN 8/10 RIGHT NOW AND HAS BEEN A CONSTANT 6/10 ALL DAY. PRN PAIN MEDS PROVIDED. ICE PACK IN PLACE AT INCISION SITE, PATIENT BELIEVES THIS IS HELPING. PATIENT STATES THAT HE HAD A CONVERSATION WITH HIS NEPHEW TODAY, WHO WORKS IN HEALTH CARE, AND HIS NEPHEW TOLD HIM THAT HE BELIEVES HIS PAIN IS MORE THAN A 3/10. PATIENT STATES "I BETTER START LISTENING TO HIM BECAUSE HE KNOWS BETTER THAN I". RN ENCOURAGED PATIENT TO USE THE FACE PAIN SCALE AND CONSIDER HIS EXPECTED LEVEL OF PAIN AND HIS GOAL. PATIENT VERBILIZED UNDERSTANDING.
--- NOTE | 2017-02-13 22:28 | NUR ---
ENCOURAGE DEEP BREATHING AND COUGHING. VIVIANA'S ORAL TEMP 99.3 F. RN TURNED HEAT IN ROOM DOWN TO 72 DEGREES AND REMOVED ONE OF THE TWO BLANKETS ON THE PATIENT. HE STATES HE IS STILL WARM ENOUGH. WILL CONTINUE TO MONITOR.
--- NOTE | 2017-02-13 23:15 | NUR ---
PATIENT USED CALL LIGHT TO REQUEST RN. VIVIANA WAS WONDERING IF HIS AND NEPHEW HAD BEEN IN TO SEE HIM TODAY. REORIENTED THE PATIENT TO THE TIME AND DAY. HE REALIZED HE HAD BEEN SLEEPING AND IT WAS EVENING TIME. PATIENT DENIED FURTHER NEEDS. HE IS ORIENTED X3. CALL LIGHT IN REACH.
--- NOTE | 2017-02-14 02:18 | NUR ---
PATIENT RESTING IN BED. EYES CLOSED. RR 18. CALL LIGHT IN REACH.
--- NOTE | 2017-02-14 03:36 | NUR ---
PATIENT WAS INCONTINENT. VASQUEZ CARE AND ATTEND CHANGED. PATIENT REPORTS 7/10 PAIN. PRN TYLENOL PROVIDED.
--- NOTE | 2017-02-14 04:45 | NUR ---
PATIENT REPORTED 8/10 PAIN. PRN PAIN MEDICATION PROVIDED. PATIENT RESTING IN BED. DENIES TOILETING NEEDS. CALL LIGHT IN REACH. EYE DROPS ADMINISTERED.
--- NOTE | 2017-02-14 05:23 | NUR ---
PATIENT SLEPT WELL DURING THE SHIFT. PATIENT HAD INCREASED PAIN. PRN TYLENOL X2, PRN OXY X2. ICE PACK APPLIED TO INCISION SITE. PATIENT INCONTINENT X3. TURN Q2H. SBA W/FWW. NO IV. SOFT DIET, ENSURE ENCOURAGED.
--- NOTE | 2017-02-14 06:46 | NUR ---
PT APPEARED TO BE SLEEPING WELL WHEN I CHECKED IN ON HIM. CALL LIGHT WITHIN REACH.
--- NOTE | 2017-02-14 07:52 | NUR ---
NOTIFIED DR. CARNEY PATIENT THROAT SORE FROM NG TUBE INSERTION, NEW ORDERS FOR LOZENGES AND PHENOL SPRAY. DISCUSSED WITH DR. CARNEY USE OF TORADOL IV, REPORTED PATIENT PAIN CONTINUING TO BE A 6/[address] CARNEY NOTED PATIENT HAS A HX OF NARCOTIC ABUSE, AND GOOD PAIN CONTROL MAY BE DIFFICULT. NEW ORDER FOR TORADOL 30 MG Q6 PRN FOR 4 DAYS MAX SECONDARY TO POSSIBLE BLEEDING COMPLICATIONS. NEW ORDERS PLACED IN COMPUTER, AND DISCUSSED ORDERS WITH PHARMACY. UPDATED PATIENT WITH CARE, CHANGED LINEN WHILE PATIENT STOOD TO STRETCH HIS LEGS, ABDOMEN TIGHT, BOWEL SOUNDS NOTED UPPER DIAPHRAGM, NO BOWEL SOUNDS IN LOWER, STOMACH APPEARS TO HAVE INCREASED REDNESS TRANSVERSLY AT MID ABDOMEN REGION, WARM TO TOUCH. PROVIDED ICE. URINE OUTPUT GOOD, URINE APPEARS CONCENTRATED. EMPTIED 250 ML FROM URINAL.
--- NOTE | 2017-02-14 12:00 | NUR ---
PATIENT UP AMBULATING IN HALLS TOLERATING WELL. HAS COMPLAINTS OF PAIN BEHIND HIS RIGHT EYE. DISCUSSED WITH DR. ARMENDARIZ, PAIN MEDICATION CAN NOW BE GIVEN Q4HRS INSTEAD OF 6HRS. PATIENT NOW HAS EYE PATCH ON AND CONVERSING WITH FAMILY.
--- NOTE | 2017-02-14 13:44 | NUR ---
PATIENT WAS IN CHAIR HAD A VISITOR IN THE ROOM BUT ALLOWED ME TO CARRY ON WITH VITAL SIGNS, HE REQUESTED A PAIN MED STRONGER THAN TYLENOL I REPORTED THAT TO THE NURSE AND SHE GOT HIM WHAT HE NEEDED, HE DIDNT WANT A REFILL ON ICE WATER, AND HE NEEDED NO OTHER ASSISTANCE AT THIS TIME.
--- NOTE | 2017-02-14 14:51 | NUR ---
JOSIAH WENT ON A WALK, HE WALKED ONE LAP WITH THE WALKER AND THE OTHER WITH HISCANES, HE NEEDED TO USE THE RESTROOM, AND I ASKED IF HE WANTED A SHOWER AT THE TIME HE SAID HE WOULD RATHER BRUSH HIS TEETH IF I DIDNT MIND I TOLD HIM THAT WORKS WELL! WILL RE CHECK ABOUT THE SHOWER.
--- NOTE | 2017-02-14 17:03 | NUR ---
PATIENT CONTINUES TO COMPLAIN OF PAIN BEHIND RIGHT EYE, RATES PAIN 8/10 ON PAIN SCALE. PATIENT SITTING ON COUCH IN ROOM EATING DINNER, APPEARS CALM. ADMINISTERED PRN TYLENOL.
--- NOTE | 2017-02-14 21:13 | NUR ---
AFTER CHANGING PTS ATTEND AND TAKING OFF HIS SWEATSHIRT, DUE TO BEING SWEATY AND HAVING A FEVER. 100.1 INFORMED HIS RN. HE IS RESTING COMFORTABLE AND CALL LIGHT IS IN REACH.
--- NOTE | 2017-02-14 21:29 | NUR ---
PT LAYING IN BED, APPEARED ASLEEP, BUT WOKE TO RN ENTERING ROOM. EYE PATCH IN PLACE. REPORTS PAIN IN RIGHT SIDE OF HEAD, STATES 5/10, GAVE TYLENOL FOR PAIN. ADMINISTERED EYE DROPS. PT ALERT AND ORIENTED, BUT FORGETFUL, PT EASILY RE-ORIENTED. CREDIT ADMINISTRATION MANAGER REPORTED 100.1 TEMP, SWEATSHIRT AND SWEATPANTS WERE REMOVED AND TEMP CAME DOWN TO WNL NOW. CALL LIGHT IN REACH. NO FURTHER NEEDS AT THIS TIME.
--- NOTE | 2017-02-14 23:33 | NUR ---
pt used call light to call nurses station. pt confused when rn entered room, pt stated "i am trying to figure out the best drain system for the laundry room." pt re-oriented to place and time, pt re-oriented easily. pt up to bathroom to void, attends changed due to incontinent. pt back in bed. gave warm blanket per request. no further needs. call light in reach.
--- NOTE | 2017-02-15 00:44 | NUR ---
I RESPONDED TO PTS CALL LIGHT BY GOING IN HIS ROOM. HE SAID HE WAS WORRIED... I SAID ABOUT WHAT? HE RESPONDED BY SAYING "WELL I DONT KNOW" I ASKED IF HE WANTED TO WATCH TV AND GET HIS MIND OFF OF THINGS? HE STATED" YES THAT WOULD BE GOOD" I TURNED ON THE TV FOR HIM AND GOT TO A SHOW THAT HE WAS GOING TO TRY AND WATCH FOR AWHILE. HE WAS LAYING COMFORTABLE IN HIS BED WITH HIS CALL LIGHT IN HIS HAND.
--- NOTE | 2017-02-15 00:51 | NUR ---
RIGHT AFTER I LEFT THE PTS ROOM HIS CALL LIGHT WENT OFF AGAIN. I WENT IN TO SEE WHAT HE WANTED , HE FORGOT TO ASK FOR HIS GLASSES. I GAVE THEM TO HIM AND LEFT THE ROOM.
--- NOTE | 2017-02-15 02:30 | NUR ---
pt up to bathroom to void. also complained of 6/10 pain in right side of head, gave tylenol for pain. no further needs.
--- NOTE | 2017-02-15 02:45 | NUR ---
TOOK PT TO BATHROOM PER PT REQUEST. PT INFORMED ME THAT HE HAD A BAD HEADACHE. I TOLD HIS RN. SHE CAME AND GAVE HIM HIS MEDS. GOT PT BACK INTO BED. PT STATED HE DIDNT "FEEL GOOD" SO I TOOK HIS VITALS. INFORMED PT RN AND CHARTED IN COMPUTER. LEFT PT RESTING IN BED. CALL LIGHT IN HIS HAND. HE STATED HE NEEDED NOTHING ELSE AT THIS TIME.
--- NOTE | 2017-02-15 02:58 | NUR ---
PER PT CALL LIGHT I WENT INTO CHECK AND SEE WHAT I COULD DO FOR HIM. HE ASKED IF I WOULD HELP HIM GET HIS SWEATSHIRT ON. HE WAS CHILLY. I FOUND HIM A DRY SWEATSHIRT AND HELPED GET IT ON FOR HIM. I LEFT THE ROOM WITH HIM IN BED RESTING AND CALL LIGHT ON HIS LAP. NO OTHER NEED AT THIS TIME PER PT.
--- NOTE | 2017-02-15 03:06 | NUR ---
PT UP TO BATHROOM WITH 1 PERSON ASSIST AND FWW, TOLERATING WELL. VOIDED. PT COMPLAINED OF 6/10 PAIN IN HIS RIGHT SIDE OF HEAD, GAVE TYLENOL FOR PAIN. PT HAS NO FURTHER NEEDS. CALL LIGHT IN REACH.
--- NOTE | 2017-02-15 04:54 | NUR ---
WENT INTO PT ROOM PER PT CALL LIGHT. HE ASKED IF I COULD HELP HIM USE THE BATHROOM. I HELPED HIM OUT OF BED WITH HIS WALKER AND INTO THE BATHROOM. I HELPED HIM CHANGE HIS ATTEND. ( INCONTINEMT OF URINE) I EMPTIED ALL OF HIS GARBAGE CANS AND STREIGHTENED UP HIS ROOM. HELPED HIM BACK TO HIS BED WITH HIS FWW. PUT HEEL PROTECTORS BACK ON HIS FEET AND GOT HIM UNDER HIS BLANKETS. HE INFORMED ME HIS HEAD WAS STILL HURTING. I TOLD HIM I WOULD LET HIS NURSE KNOW. I LEFT THE ROOM WITH THE PT IN BED AND THE CALL LIGHT IN HIS LAP. I LET HIS RN KNOW ABOUT HIS HEADACHE.
--- NOTE | 2017-02-15 05:50 | NUR ---
pt sitting up in chair. watching tv. no further needs. call light in reach.
--- NOTE | 2017-02-15 05:54 | NUR ---
PT HAD UNEVENTFUL NIGHT. TYLENOL GIVEN X2 FOR PAIN. PT LESS CONFUSED AND FORGETFUL THIS MORNING, ALERT AND ORIENTED X4. PT UP TO BATHROOM A FEW TIMES OVERNIGHT, INCONTINENT OF URINE X1. PT AMBULATING WELL WITH MINIMAL 1 PERSON ASSIST WITH FWW. PLEASENT AND FRIENDLY DEMEANOR, COOPERATIVE. USES CALL LIGHT APPROPRIATLY.
--- NOTE | 2017-02-15 06:54 | NUR ---
WENT INTO PTS ROOM PER CALL LIGHT RINGING. PT ASKED IF I COULD HELP HIM TO THE BATHROOM. I GOT HIS WALKER AND HELPED HIM TO THE TOILET. I EMPTIED HIS GARBAGE AND CLEANED UP HIS ROOM. I HELPED HIM BACK TO HIS CHAIR. I LEFT HIS BEDSIDE TABLE NEXT TO HIM AND HIS CALL LIGHT NEXT TO HIS HAND. ASKED HIM IF NEEDED ANYTHING ELSE AT THIS TIME. HE SAID NO HE WAS GOOD.
--- NOTE | 2017-02-15 07:39 | NUR ---
BEDSIDE REPORT RECEIVED FROM CLAUDETTE. PATIENT RESTING IN BED , APPEARS TO BE SLEEPING AT THE TIME OF REPORT. RR OCTAVIANO/UNLBORED. O2 SAT 94% AND HR 80-90 PER PULSE OXYMETER. PATIENT IS 5L O2 VIA OXY MASK.
--- NOTE | 2017-02-15 07:45 | NUR ---
PATIENT UP TO CHAIR SITTING UP FOR BREAKFAST.
--- NOTE | 2017-02-15 07:46 | NUR ---
BEDSIDE REPORT RECEIVED FROM JASON. PATIENT UP TO CHAIR. DENIES PAIN AT THIS TIME. NO DISTRESS NOTED.
--- NOTE | 2017-02-15 10:15 | NUR ---
PATIENT UP IN CHAIR. SPOKE WITH HIM REGARDING DISCHARGE PLANS. HE STATES HE STILL PLANS ON GOING HOME WITH . STATES HE FEELS HE IS MAKING GOOD STRIDES. STATES HE WALKED ALOT TODAY AND DID STAIRS IN PT ROOM. PATIENT FEELS HE IS GETTING CLOSER, BUT STILL FEELS VERY WEAK AT TIMES. SPOKE WITH PT. THEY STATE PATIENT DID WALK WITH WALKER, AND THEN WITH BILAT CANES. HE DID EXERCISE BIKE AND STAIRS. THEY STATE OT NEEDS TO WORK WITH HIM TODAY, TOO. THEY STATESHE SEEMED TO GET A HEADACHE WITH EFFORT. THEY THINK HE NEEDS ANOTHER DAY OR TWO BEFORE DISCHARGE TO HOME.
--- NOTE | 2017-02-15 10:41 | NUR ---
PATIENT WAS MEDICATED FOR 7/10 PAIN PER HIS REQUEST. RESTING IN THE CHAIR AT THIS TIME. CALL LIGHT AND PERSONAL BELONGINGS WITHIN REACH.
--- NOTE | 2017-02-15 11:00 | NUR ---
PATIENT SITTING UP IN CHAIR TALKING ON CELL PHONE.
--- NOTE | 2017-02-15 11:32 | NUR ---
PATIENT UP WITH STANDBY ASSIST TO BATHROOM. SKIN CHECK DONE. COCCYX AREA IS RED FROM PATIENT SITTING BUT IS BLANCHABLE. NO SKIN BREAKDOWN NOTED ON LEGS.
--- NOTE | 2017-02-15 12:50 | NUR ---
PATIENT RESTING IN THE CHAIR. REPORT PAIN BEHING THE RIGHT EAR. PATIENT WAS MEDICATED. PATIENT EATING HIS LUNCH.
--- NOTE | 2017-02-15 13:54 | NUR ---
WAGNER WOULD NOT LIKE A SHOWER AT THIS TIME. HE STATES THAT HE MIGHT WANT ONE LATER TODAY. OT ASSISTED HIM WITH ORAL CARE THIS AM.
--- NOTE | 2017-02-15 15:38 | NUR ---
INTRODUCED SELF TO PATIENT CHARGE NURSE. PATIENT REPORTS THAT HE IS VERY SATISFIED WITH CARE HERE.
--- NOTE | 2017-02-15 17:07 | NUR ---
CARE CONFERENCE ATTENDANCE: PATIENT, , MERNA MYSELF, DR ARMENDARIZ, CRYSTAL EMERGENCY VEHICLE OPERATOR DR ARMENDARIZ WENT OVER DIAGNOSIS, SWG GOALS, REPORT FROM PHYSICAL THERAPY TODAY, MEDICATIONS, PLAN FOR DISCHARGE PROBABLY WEDNESDAY. DISCUSSED OPTIONS FOR CONTINUED THERAPIES OF HOME HEALTH VS. OP THERAPY. BOTH ARE ACCEPTABLE TO PATIENT AND . HE HAS TRANSPORTATION IF NEEDED FROM . DECISION WILL DEPEND ON PT/OT BEFORE DISCHARGE. WILL GENERAL SUPERINTENDENT RX WAITING AT [facility] FROM [facility]. SHE WILL BRING THOSE IN FOR DR ARMENDARIZ TO GO OVER TO DETERMINE WHAT IS NEEDED FOR RX FROM HERE AT DISCHARGE. DISCUSSED IMPORTANCE OF F/U WITH [facility] IN [place] FOR THE APPOINTMENT ALREADY SET UP FOR THE . BOTH STATE UNDERSTANDING OF THIS. WILL COME IN BY 9AM ON WEDNESDAY TO BE HERE FOR DISCHAGE INSTRUCTIONS. NO FURTHER QUESTIONS AT THIS TIME.
--- NOTE | 2017-02-15 17:10 | NUR ---
PATIENT RESTING IN THE CHAIR. EVENING MEDS ADMINISTERED. IN ROOM VISITING. PATIENT MED ALSO ADMINISTERED UT PATIENT REQUEST. SITTING IN THE CHAIR AT THIS TIME EATING DINNER.
--- NOTE | 2017-02-15 19:00 | NUR ---
PATIENT HAD DONE WELL TODAY. HAD BEEN UP WALKING IN THE HALLWAY WITH PHYSICAL THERAPIST. PAIN CONTROL WITH TYLENOL AND OXY. SKIN INTACT, REDNESS NOTED ON THE BUTTOCK AREA THAT IS BLANCHABLE
--- NOTE | 2017-02-15 20:15 | NUR ---
PT SITTING UP IN CHAIR. ASSISTED PT BACK TO BED. PT PLEASENT. REPORTS PAIN IS "OKAY RIGHT NOW," "ITS JUST KIND OF LIGHT RIGHT NOW." GAVE FRESH WATER. CALL LIGHT IN REACH. PT HAS NO FURTHER NEEDS AT THIS TIME.
--- NOTE | 2017-02-15 20:47 | NUR ---
VITAL SIGNS AND I&O TAKEN. CHANGED WET ATTENDS. PATIENT STATED DONT NEED ANYTHING RIGHT NOW.
--- NOTE | 2017-02-15 23:09 | NUR ---
PT UP TO BATHROOM, INCONTINENT OF URINE. VOIDED AND HAD A MEDIUM FORMED BM IN TOILET. SKIN ON COCCYX WNL. PT BACK IN BED. CALL LIGHT IN REACH. NO FURTHER NEEDS. FRESH WATER AT BEDSIDE.
--- NOTE | 2017-02-16 00:14 | NUR ---
PT APPEARS TO BE ASLEEP. RR WNL AND UNLABORED.
--- NOTE | 2017-02-16 01:01 | NUR ---
ASSISTED PATIENT FROM BATHROOM TO BED WITH WALKER. CALL LIGHT WITHIN REACH. WARM BLANKET GIVEN.
--- NOTE | 2017-02-16 01:03 | NUR ---
PT COMPLAINED OF 7/10 PAIN RIGHT SIDE HEAD. MED WITH TYLENOL, IN SPOONFUL OF GANGA PUDDING, AND SWALLOW OF WATER. HOB ELEVATED 45% PER PT REQUEST.
--- NOTE | 2017-02-16 10:19 | NUR ---
AM CARE. TOOK VITALS. PT HAS CALL LIGHT IN REACH
--- NOTE | 2017-02-16 11:00 | NUR ---
PT IN CHAIR READING PAPER SAID HE DID NOT NEED ANYTHING AT THIS TIME. ALL OTHER NOTES ARE ON PAPER CHARTS
--- NOTE | 2017-02-16 11:11 | NUR ---
ALL PREVIOUS CHARTING FOR THIS SHIFT ON PAPER CHART. PT SITTING UP IN RECLINER, TALKING WITH CHAPLAIN MILAN. PT REPORTED THAT HE IS OK AT THIS TIME.
--- NOTE | 2017-02-16 13:12 | NUR ---
PT UP TO BATHROOM, HAD BM AND VOIDED URINE, MISSED HAT. PT AMBULATED BACK TO RECLINER WITH FWW WITH STANDBY ASSIST. PT ATE 90% OF LUNCH, AND DRANK 1/2 OF A CLEAR ENSURE AND 100% OF A STRAWBERRY ENSURE WITH ADDED POWDERED PROTEIN. DENIED OTHER NEEDS. PERSONAL SUPPLIES AND CALL BUTTON IN REACH.
--- NOTE | 2017-02-16 14:25 | NUR ---
PT HAD FINISHED P.T. AND WAS SITTING IN CHAIR IN . HE SEEMED VERY INTERESTED IN VISITING. HE TOLD ME WHAT HE DID FOR A LIVING, AND THEN WE BEGAN TO TALK ABOUT HIS THOUGHTS ON HIS PHYSICAL CONDITION. HE IS THANKFUL TO BE HERE [facility]ATHER THAN [facility]. HE IS STILL VERY CONCERNED ABOUT THE WAY HE FEELS HE LOOKS FROM HIS SURGERY. WE WILL SPEND MORE TIME BUILDING UP HIS SELF IMAGE. HAD A VERY GOOD VISIT, HE THANKED ME I EXTENDED A BLESSING LUNCH ARRIVED. WILL CONTINUE TO FOLLOW
--- NOTE | 2017-02-16 14:32 | NUR ---
PT SITTING UP IN RECLINER. DENIES NEEDS. VISITING WITH FAMILY.
--- NOTE | 2017-02-16 14:36 | NUR ---
PATIENT'S , JAMEY, WAS HERE THIS AFTERNOON. SHE STATES PATIENT HAS LOST 20 LBS SINCE RIGHT BEFORE HIS SURGERY. HE WAS DRINKING 2-3 MAYBE EVEN 4 ENSURE ENLIVES AT HOME. HE IS PICKY HOW HE LIKES HIS SCRAMBLED EGGS, BUT HE DOES LIKE THEM. JAMEY IS ENCOURAGING PATIENT TO EAT MORE SEMI-SOLID FOODS INSTEAD OF APPLESAUCE, PUDDING AND YOGURT. PATIENT DID TRY SALMON LAST NIGHT THOUGH HE DOESN'T REALLY LIKE IT. I EXPLAINED TO JAMEY THAT HE NEEDS [id number] CALORIES DAILY, MAYBE MORE, FOR WEIGHT GAIN. SHE DOESN'T HAVE A PROBLEM BUYING THE ENSURE ENLIVE DRINKS FOR HOME. WE TALKED ABOUT WAYS TO ADD CALORIES TO FOODS AND TO INCREASE HIS INTAKE OF SOFT PROTEINS WELL. HIS FEAR IS JAW PAIN WHEN CHEWING. HE LIKES PEANUT BUTTER, SO I SHOWED HER THE RECIPE FOR THE PEANUT BUTTER BALLS. OTHER HIGH-CALORIE HIGH-PROTEIN RECIPES PROVIDED WELL. SHE WILL TRY TO GET HIM TO EAT 6 TIMES A DAY. WILL EMPHASIZE EATING SEMI-SOLID FOODS AND WORKING IN SOME SOFT COOKED VEGETABLES FOR FIBER WITH PATIENT BEFORE GOING HOME. FOLDER WITH HANDOUT, RECIPES, AND ENSURE COUPONS PROVIDED. MY NAME AND OFFICE # PROVIDED WELL.
--- NOTE | 2017-02-16 15:53 | NUR ---
PT SITTING UP IN RECLINER. IN ROOM WITH PT. PT REPORTED PAIN 8/10 TO RIGHT SIDE OF HEAD, RIGHT EAR. GAVE ACETAMINOPHEN 500 MG PO PRN. PT ALERT, ORIENTED. DENIED NEEDS.
--- NOTE | 2017-02-16 16:43 | NUR ---
PT AWAKE IN CHAIR. SPEECH THEROPY IN ROOM. PT DOING WELL
--- NOTE | 2017-02-16 16:54 | NUR ---
VISITED THIS AFTERNOON WITH PT AND HIS AND SON. PT STATES HE IS FEELING SOME BETTER AND THE IS HAPPY WITH HIS PROGRESS NAD CARE HERE.
--- NOTE | 2017-02-16 17:03 | NUR ---
PT SITTING UP IN RECLINER, EATING DINNER. REPORTED THAT HE TOLERATED PHYSICAL THERAPY THIS SHIFT WELL. ALSO REPORTS THAT HIS PAIN LEVEL HAS DECREASED, AND IS NOW A TOLERABLE LEVEL TO RIGHT SIDE OF HEAD, RIGHT EAR CANAL. DENIED NEEDS AT THIS TIME.
--- NOTE | 2017-02-16 17:52 | NUR ---
PT DOING WELL THIS SHIFT. TOLERATED SOFT DIET WELL, APETITE FAIR. DRANK SEVERAL MEAL SUPLEMENT DRINKS THIS SHIFT. PT HAS NO IV SITE. HAD EYE DROPS TO RIGHT EYE PRN THIS SHIFT, PT IS UNABLE TO BLINK RIGHT EYE. ALSO HAS RIGHT FACIAL DROOP. SURGICAL SITE TO RIGHT SIDE OF HEAD BEHIND RIGHT EAR WNL, SHELLEY. PT DID C/O PAIN TO RIGHT SIDE OF HEAD, RIGHT EAR/EAR CANAL. RECIEVED ACETAMINOPHEN 500 MG PO PRN X 2 THIS SHIFT, WITH GOOD EFFECT. PT UP WITH FWW WITH STANDBY TO MINIMAL ASSIST. PT ALERT, ORIENTED X 4. PT ABLE TO REPOSITION SELF. SKIN TO COCCYX AND SACRUM WNL, INTACT.
--- NOTE | 2017-02-16 19:49 | NUR ---
RECEIVED REPORT FROM DAY SHIFT RN. PATIENT IS RESTING IN BED WITH EYES CLOSED. BREATHING IS EVEN AND UNLABORED, RR 18. CALL LIGHT IN REACH.
--- NOTE | 2017-02-16 21:29 | NUR ---
V/S I&O TAKEN. PATIENT ASKED FOR TYLENOL AND EYE GTTS. NURSE NOTIFIED.
--- NOTE | 2017-02-16 21:49 | NUR ---
PATIENT ASSESMENT COMPLETED. PATIENT GIVEN PRN TYLENOL FOR RIGHT SIDED FACE PAIN THAT RUNS FROM HIS HEAR TO HIS CHIN. PATIENTS VITALS TAKEN AND RECORDED. PATIENT GIVEN PRN EYE DROPS PER ORDER. PLACED PATIENTS EYE PATCH IN PLACE ON RIGHT EYE. PATIENT DENIES ANY FURTHER NEEDS. PATIENT REPOSTITIONED. CALL LIGHT IN REACH.
--- NOTE | 2017-02-16 23:28 | NUR ---
PATIENT IS RESTING IN BED WITH EYES CLOSED. BREATHING IS EVEN AND UNLABORED, RR 17. CALL LIGHT IN REACH.
--- NOTE | 2017-02-17 01:21 | NUR ---
PATIENT CONTINUES TO REST IN BED WITH EYES CLOSED, RR 17. RIGHT EYE PATCH IN PLACE. CALL LIGHT IN REACH.
--- NOTE | 2017-02-17 03:15 | NUR ---
PATIENT IS RSETIN GIN BED WITH EYES CLOSED, RR 16. CALL LIGHT IN REACH.
--- NOTE | 2017-02-17 04:20 | NUR ---
PATIENT CALLED AND REQUESTED TO USE THE RESTROOM. PATIENT ASSISTED TO THE RESTROOM A SBA W/FWW. PATIENT IS NOW RESTIN SOFI RECLINER. PATIENT GIVEN PRN TYLENOL FOR PAIN IN THE RIGHT SIDE OF HIS FACE. PATIENT ALSO GIVEN PRN EYE DROPS PER ORDER IN HIS RIGH EYE. PATIENTS ATTEND CHANGED AND SWEATS PUT ON. PATIENT WAS INCONTINENT. NO FURTHER NEEDS COTED. CALL LIGHT IN REACH.
--- NOTE | 2017-02-17 05:00 | NUR ---
PATIENT RESTED WELL THROUGHOUT THE SHIFT. PATIENT WORE PATCH ON RIGHT EYE WHILE ASLEEP. PATIENT RECIEVED PRN TYLENOL X2 FOR PAIN ON THE RIGHT SIDE OF HIS FACE. PATIENT HAS SURGICAL INCISION BEHIND RIGHT EAR THAT IS OPEN TO AIR AND WELL APPROXIMATED. PATIENT IS ON A HIGH CALORIES, HIGH PROTEIN DIET, WITH SUPPLEMENTS OFFERED IN BETWEEN MEALS. PATIENT IS A SBA W/FWW. PATIENT GIVEN PRN EYE DROPS X2. PATIENT IS INCONTINENT AT TIMES. PATIENT HAD X1 BM. PATIENT IS AAOX3. PATIENT DOES STRUGGLE WITH KEEPING TRACK OF TIME. PATIENT USES CALL LIGHT APPROPRIATELY.
--- NOTE | 2017-02-17 05:53 | NUR ---
ASSISTED PT TO THE BATHROOM WITH FWW. MIMINAL ASSISTANCE FOR BALANCE, ABLE TO CLEAN SELF AFTER BM. BACK TO CHAIR, WITH CALL LIGHT WITH IN REACH. DENIES OTHER NEEDS.
--- NOTE | 2017-02-17 06:26 | NUR ---
PATIENT IS RSETING IN THE RECLINER. PATIENT DENIES ANY PAIN. PATIENT DENIES ANY NEEDS AT THIS TIME. CALL LIGHT IN REACH.
--- NOTE | 2017-02-17 07:20 | NUR ---
pt sitting up in the chair resting with eyes closed at this time.
--- NOTE | 2017-02-17 07:25 | NUR ---
RECIEVED CHAIRSIDE REPORT FROM COLLEEN DUNBAR. PT AROUSED TO VERBAL STIMULI. DENIED NEEDS AT THIS TIME.
--- NOTE | 2017-02-17 08:06 | NUR ---
GAVE PT AM MEDICATIONS. AM ASSESSMENT COMPLETE. PT DENIED PAIN. GIVEN EYE DROPS TO RIGHT EYE.
[2017-02-17] MEDS ORDERED: TIZANIDINE HCL2 MG PO (09:43)
--- NOTE | 2017-02-17 10:36 | NUR ---
FAXED CHART NOTES INCLUDING FACESHEET, H AND P, DC SUMMARY AND PACKET, PT, OT, AND ST. TO [facility] AND TALKED WITH AKANKSHA ABOUT THIS PT.
--- NOTE | 2017-02-17 10:43 | NUR ---
REVIEWED DISCHARGE INSTRUCTIONS WITH PT AND PT'S . QUESTIONS ASKED AND ANSWERED, PT AND VERBALIZED UNDERSTANDING. DENIED FURTHER QUESTIONS. PT HAS NO NEW MEDICATIONS, PHARMACIST KAMRAN IN WITH PT AND PT'S AT THIS TIME. PT HAS NO IV.
[2017-03-09] MEDS ORDERED: CLARITIN10 MG PO (15:05)
== END 2017-02-17 11:27 | disposition home or self-care (01) | DRG 74 ==
LOC: MS 10:11
PROVIDERS: ADMIT Internal Medicine
DX: G51.0 Bell's palsy (principal); R13.10 Dysphagia, unspecified; R47.1 Dysarthria and anarthria; Z98.890 Other specified postprocedural states; Z51.89 Encounter for other specified aftercare
CPT/HCPCS: 92526; 92610; 94667; 94668; 97110; 97116; 97162; 97165; 97535; J1650

== ENCOUNTER 2017-03-04 15:05 | Emergency (ER) | payer MEDICARE, OTHER ==
[~2017-03-04] VITALS: Ht 167.6 cm; Wt 54.4 kg
[~2017-03-04 15:05] MED LIST changes: +ADVANCED EYE R3.5 GM OPTH; +LIQUITEARS15 ML OD; +LOVENOX40 MG/0.4 SUB-Q; +OXYCODONE HCL5 MG PO; +SENNA-DOCUSATE1 EAC1 PO; +TIZANIDINE HCL2 MG PO; +TYLENOL325 MG PO; +VITAMIN C500 M1 PO
[2017-03-09] MEDS ORDERED: CLARITIN10 MG PO (15:05)
== END 2017-03-04 18:21 | disposition home or self-care (01) ==
LOC: ED 15:05
DX: E86.0 Dehydration (principal); K21.9 Gastro-esophageal reflux disease without esophagitis; E78.00 Pure hypercholesterolemia, unspecified; E03.9 Hypothyroidism, unspecified; Z87.891 Personal history of nicotine dependence; Z88.8 Allergy status to other drugs, medicaments and biological substances; Z79.899 Other long term (current) drug therapy
CPT/HCPCS: 80053; 85025; 96360; 99283; J7030

== ENCOUNTER → 2017-03-09 | Emergency (ER) | payer MEDICARE, OTHER ==
[~2017-03-09] VITALS: Ht 167.6 cm; Wt 54.9 kg
[~2017-03-09] MED LIST changes: +CLARITIN10 MG PO; +DOXEPIN HCL10 MG PO; +PERIDEX473 M1 MM; +WARFARIN SODIUM4 MG PO
== END ==
LOC: ED 14:38
PROC: 0T9B70Z Drainage of Bladder with Drainage Device, Via Natural or Artificial Opening (ICD-10-PCS; principal; 2017-03-09)
DX: T81.4XXA Infection following a procedure, initial encounter (principal); L02.91 Cutaneous abscess, unspecified; Z88.8 Allergy status to other drugs, medicaments and biological substances; Z79.899 Other long term (current) drug therapy
CPT/HCPCS: 51702; 70450; 71045; 80053; 81001; 83605; 85025; 87040; 87070; 87077; 87186; 87205; 96374; 99285; J0696; J7030

== ENCOUNTER 2017-03-19 10:06 | Inpatient (IN) | payer MEDICARE, OTHER ==
[~2017-03-19] VITALS: Ht 167.6 cm; Wt 57.0 kg
[~2017-03-19 10:06] MED LIST changes: -DOXEPIN HCL10 MG PO; -PERIDEX473 M1 MM; -WARFARIN SODIUM4 MG PO
--- NOTE | 2017-03-19 18:30 | NUR ---
PT ARRIVED TO FLOOR AT 1755 VIA WHEEL CHAIR. PT ASSISTED TO BED, CHANGED INTO HOSPITAL GOWN. SKIN ASSESSMENT COMPLETED, PT WITH INCISION TO RIGHT NECK, SUTURES IN PLACE, SMALL DRAIN INSERTION SITE TO LOWER BACK, SUTURE IN PLACE. PT ON ROOM AIR, LUNG SOUNDS CLEAR, DENIES SOB, DISCUSSED PE AND SIGNS AND SYMPTOMS. BOWEL TONES ACTIVE, DENIES NAUSEA. PT WITH RIGHT SIDED FACIAL PARALYSIS, AT BASELINE. STRENGTH EQUAL BILATERALLY TO UPPER AND LOWER EXTREMITIES. PT COMPLAINT OF PAIN TO RIGHT EYE, AT BASELINE. ADMISSION INTAKE COMPLETED. PT ASSISTED WITH ORDERING PUREED DINNER. AT BEDSIDE.
--- NOTE | 2017-03-19 19:39 | NUR ---
PT ADMITTED FOR SWING BED, ARRIVED TO UNIT AT 1800. ADMISSION INTAKE COMPLETED. PT ON ROOM AIR, LUNG SOUNDS CLEAR. PT TOLERATING PUREED DIET, DENIES NAUSEA. PT UP WITH 1PA WITH FWW. PT CAN BE INCONTINENT AT TIMES. WITHOUT IV ACCESS.
--- NOTE | 2017-03-19 20:00 | NUR ---
RECEIVED REPORT AT 1900. FOUND PT IN BED EATING DINNER. PT COMPLAINED OF SHOULDER PAIN N HIS RIGHT SIDE WHICH STARTED ABOUT 3-4 DAYS AGO FOR NO REASON. PT WAS EATING HIS DINNER. PT HAD NO OTHER CONCERNS.
--- NOTE | 2017-03-19 20:06 | NUR ---
PATIENT IN BED. GOT HIM SET UP FOR DINNER. ROOM TIDIED. WHITEBOARD UPDATED.
--- NOTE | 2017-03-19 20:27 | NUR ---
PT C/O RFA OLD IV SITE SHAD BLEEDING PRESENT APPROX 10-20CC PF BRIGHT RED DRAINAGE PRESENT. OLD DRESSING REMOVED, PRESSURE OF 5 MINUTES DONE TO AREA, NEW DRESSING APPLIED OF 2-2X2 GAUZE APPLIAD COVERED WITH COBAN, NO FURTHER SHAD BLEEDING PRESENT AT THIS TIME. PRIMARY RN OSCAR MACIAS NOTIFIED. PT INSTRUCTED TO CALL RN IF HE NOTICES ANY FURTHER DRAINAGE FROM R FA OLD IV SITE. STATED UNDERSTANDING
--- NOTE | 2017-03-19 22:00 | NUR ---
V/S ARE WDL. PRN 2.5MG OF OXY WAS GIVEN. ALL LOBES ARE VERY DIMINISHED BUT CLEAR. ABD SOUNDS ARE PRESENT. PT OVERALL IS VERY WEAK. RADIAL AND DORSALIS PEDIS PULSES ARE +2. INCISION BEHIND RIGHT EAR SUTURES AND IS SHELLEY AND DRY. INCISION ON MID BACK ALSO HAS A SUTURE AND IS SHELLEY AND IS DRY. RIGHT SIDED FACIAL PARALYSIS IS PRESENT. PATIENT HAS NORMAL SENSATION ON RIGHT SIDE OF FACE. PT NOW IS SLEEPING. PT ALSO HAS A FOAM DRESSING ON COCCYX WHICH SEEMS TO BE FOR PREVENTATIVE PURPOSES SINCE THERE IS NO DEBUBITUS PRESENT.
--- NOTE | 2017-03-20 | NUR ---
PT IS SLEEPING.
--- NOTE | 2017-03-20 02:40 | NUR ---
PT IS STILL SLEEPING AT THIS TIME.
--- NOTE | 2017-03-20 05:26 | NUR ---
V/S ARE WDL SO FAR. PT HAS BEEN SLEEPING MOST OF THIS SHIFT. PT RIGHT SISED FACIAL PARALYSIS. PT DOES HAVE SENSATION ON THE RIGHT SIDE OF HIS FACE. INCISIONS BEHIND HIS RIGHT EAR AND ON HIS MID BACK HAVE SUTURER AND ARE SPIRAL RUNNER, DRY AND WELL APPROXIMATED. ALL LOBES ARE VERY DIMINISHED BUT PT DENIES SOB. PT COMPLAINED OF SHOULDER PAIN ON HIS RIGHT SIDE. HE HAS HAD THIS PAIN FOR ABOUT 3-4 DAYS AND HE DOES NOT KNOW WHY. PRN PAIN MEDICATION TREATS HIS PAIN WELL. OVERALL PT IS VERY WEAK. PT ALSO DENIES PAIN IN LEGS (DUE TO DVT'S), PT HAS NO EDEMA OR REDNESS ON BOTH LEGS. RADIAL AND DORSALIS PEDIS PULSES ARE +2. NO NEW CONCERNS AT THIS TIME.
--- NOTE | 2017-03-20 06:29 | NUR ---
PT IS AWAKE NOW. HIS ATTENDS WAS DRY AND PT WAS TURNED. PT HAS NO NEEDS AT THIS TIME.
--- NOTE | 2017-03-20 08:44 | NUR ---
PT STATES "I JUST FEEL VERY DIZZY AND WEAK. VITALS HAVE BEEN TAKEN AND DOCUMENTED. WILL NOTIFY RN. PER PT REQUESTED HIS BREAKFAST HAS BEEN SET ASIDE. COOL WASH CLOTH GIVEN. CALL LIGHT IS IN REACH.
--- NOTE | 2017-03-20 09:00 | NUR ---
PT SITTING UP IN BED WITH BREAKFAST IN FRONT OF HIM. PT STATES HE DOESN'T FEEL WELL THIS MORNING STATES "I HAVE A HEADACHE AND I'M REALLY DIZZY." VSS, ASSESSMENT BENIGN OTHER THAN GENERALIZED WEAKNESS. PT DENIES SOB OR DIFFICULTY BREATHING, LUNGS CLEAR THROUGHOUT, SATTING 95% ON RA. PT DENIES CHEST PAIN OR DISCOMFORT IN LEGS. COOL CLOTH PUT ON FOREHEAD, MEDICATED WITH TYLENOL FOR HEADACHE. GAVE PT CHOCOLATE ENSURE, HE TOOK A FEW SIPS, ATE A FEW BITES OF APPLESAUCE WITH PILLS. CALL LIGHT WITHIN.
--- NOTE | 2017-03-20 09:43 | NUR ---
pt called using his call light, he told me that he wasnt feeling well, that his left shoulder and right side of his head were hurting, i reported this to his nurse, he also said that if the door is open because he isnt feelig well that is causes his right eye to hurt.
--- NOTE | 2017-03-20 11:15 | NUR ---
PT REPORTS THAT HE IS STARTING TO FEEL A LITTLE BETTER. AGREED TO WORK WITH PAlyssia AT THIS TIME.
--- NOTE | 2017-03-20 12:00 | NUR ---
PT SHOWERED WITH ASSISTANCE OF SOTO AGUILAR CNA. BACK TO BED AT THIS TIME. CALL LIGHT WITHIN REACH.
--- NOTE | 2017-03-20 12:50 | NUR ---
PT SITTING UP IN BED, RELUCTANT TO EAT LUNCH. AT BEDSIDE STATES "HE USUALY WON'T EAT UNLESS I'M RIGHT HERE TO SPOON FEED HIM." PT CURRENTLY HELPING PT EAT.
[2017-03-20] MEDS ORDERED: DOXEPIN HCL10 MG PO (13:19)
[2017-03-20] MEDS ORDERED: PERIDEX473 M1 MM (13:47)
--- NOTE | 2017-03-20 15:00 | NUR ---
PT ONLY TOOK A FEW SMALL BITES OF LUNCH. DRANK A WHOLE ENSURE. PT'S HELPED HIM GET DRESSED IN HIS PERSONAL CLOTHING FOR COMFORT. PT STATES HE IS OVERALL FEELING MUCH BETTER THIS EVENING. CALL LIGHT WITHIN REACH.
--- NOTE | 2017-03-20 16:02 | NUR ---
PATIENT AND GIVEN EXTENSIVE ORAL ANTICOAGULANT EDUCATION INCLUDING INFORMATION ABOUT WARFARIN EFFECTS, POSSIBLE SIDE EFFECTS, BLEED RISK, SIGNS AND SYMPTOMS OF BLEED, INR MEANING, GOAL, AND TESTING, DRUG-FOOD AND DRUG-DRUG INTERACTIONS, AND WARFARIN DOSING. PATIENT'S , SPRING CALDERON, GIVEN HANDOUTS FROM UP-TO-DATE ABOUT ORAL ANTICOAGULANTS, BLEEDING REVERSAL AGENTS, AND WARFARIN EFFECTS AND POSSIBLE SIDE EFFECTS SPECIFICALLY.
--- NOTE | 2017-03-20 16:05 | NUR ---
MED REC COMPLETE WITH , SPRING CALDERON.
--- NOTE | 2017-03-20 16:20 | NUR ---
PT STATES HE WOULD LIKE TO GO FOR A WALK. PT WOULD LIKE TO WAIT UNTIL HIS COMPANY IS GONE. I INFORMED THE PT THAT WE CAN DEFINITELY DO THAT, BUT I WILL NEED TO GRAB SOMEONE TO WALK WITH US WHEN THE TIME COMES AND TO CALL WHEN HE IS READY. CALL LIGHT IS IN REACH.
--- NOTE | 2017-03-20 17:22 | NUR ---
PT AMB HALLWAY WITH 1PA SBA AND WALKER. ASSISTED BACK TO BED. CALL LIGHT WITHIN REACH.
--- NOTE | 2017-03-20 18:08 | NUR ---
PT IS SITTING UP IN BED JUST FINISHED HIS DINNER DID NOT NEED ANYTHING AT THE MOMENT
--- NOTE | 2017-03-20 22:00 | NUR ---
PT STATES THAT R ARM IS UNCOMFORTABLE. R ARM NOTED TO BE EDEMATOUS FROM MIDARM TO FINGERS DUE TO COBAN PLACEMENT. COBAN REMOVED. SITE UNDERNEATH BLEEDS WHEN COBAN AND 2X2 REMOVED. 2X2 AND TAPE PLACED TO SITE. R ARM ELEVATED ON PILLOW. PT STATES THAT PAIN TO R ARM IS CAUSING DISCOMFORT INTO L NECK. RATES 3/10, STATES THAT PAIN IS TOLERABLE. PT ASSESSMENT COMPLETE. DENIES OTHER NEEDS AT THIS TIME. CALL LIGHT WITHIN PT'S REACH.
--- NOTE | 2017-03-20 23:32 | NUR ---
PT RESTING IN BED WITH EYES CLOSED. RESPIRATIONS EVEN AND UNLABORED. PT APPEARS TO BE SLEEPING. PT DOES NOT WAKE WHILE GAS BOOSTER ENGINEER IN ROOM. CALL LIGHT WITHIN PT'S REACH.
--- NOTE | 2017-03-21 03:15 | NUR ---
PT RESTING IN BED WITH EYES CLOSED. RESPIRATIONS ARE EVEN AND UNLABORED. NO BLOOD NOTED TO L ARM UPON ASSESSMENT. PT DOES NOT WAKE WHILE PROFESSOR OF SPECIAL EDUCATION IN ROOM LOOKING AT ARM. NO S/SX OF DISTRESS NOTED. PT APPEARS TO BE SLEEPING. CALL LIGHT WITHIN PT'S REACH.
--- NOTE | 2017-03-21 05:30 | NUR ---
PT SLEEPING MOST OF SHIFT. TOLERABLE PAIN 3/10 TO R FOREARM DUE TO COBAN PLACEMENT EARLY IN SHIFT, SUBSIDED WITHOUT INTERVENTION. ARM ELEVATED ON PILLOW. GAUZE AND TAPE APPLIED INSTEAD OF COBAN. NO NEW BLEEDING NOTED OVER NIGHT. R SIDED PARALYSIS, SENSATION INTACT. EYE DROPS AT BEDSIDE, PT REQUESTS APPROPRIATELY. INCISIONS BEHIND R EAR AND MID BACK WITH SUTURES, SHELLEY. NO DRAINAGE NOTED. LUNGS CLEAR, DIMINISHED IN BASES. INCONTINENT WITH ATTENDS IN PLACE, PT CALLS APPROPRIATELY FOR ATTENDS CHANGES. NO IV ACCESS. 1 PA WITH FWW.
--- NOTE | 2017-03-21 07:26 | NUR ---
BEDSIDE REPORT RECIEVED FROM COLLEEN CANO. PT AWAKE, ALERT. VISUALIZED SUTURED INCISION BEHIND RIGHT EAR, AND SUTURE SITE TO RIGHT LOW BACK. PT IN BED. DENIED NEEDS AT THIS TIME.
--- NOTE | 2017-03-21 08:03 | NUR ---
PT IS SITTING UP IN BED FOR BREAKFAST. ASKED PT IF HE WOULD LIKE TO SIT UP IN THE CHAIR FOR LUNCH. PT HAS AGREED. NO OTHER NEEDS AT THIS TIME. CALL LIGHT IS IN REACH.
--- NOTE | 2017-03-21 09:34 | NUR ---
PT ASSISTED IN BRUSHING HIS TEETH. PT THEN ASSISTED WITH 1 PERSON ASSIST USING GAIT BELT AND FWW TO TRANSFER FROM BED TO RECLINER. PT SITTING UPRIGHT IN RECLINER. CALL BUTTON AND PERSONAL SUPPLIES IN REACH. DENIES NAUSEA. DENIES PAIN AT THIS TIME.
--- NOTE | 2017-03-21 09:50 | NUR ---
PT WAS GIVEN WARM WASH CLOTH AT BREAKFAST TIME. OFFERED PT ANOTHER WARM WASH CLOTH RIGHT NOW. PT DENIES WANTING ONE. NO OTHER NEEDS AT THIS TIME. WATER AND CALL LIGHT IS IN REACH.
--- NOTE | 2017-03-21 10:09 | NUR ---
PT ASSISTED BACK TO BED. CALL LIGHT WITHIN REACH. PROVED WITH WARM BLANKETS. PT SPEAKING ON THE PHONE WITH .
--- NOTE | 2017-03-21 11:03 | NUR ---
PT IN BED, AWAKE, ALERT. PT IS TALKING ON PHONE.
--- NOTE | 2017-03-21 11:17 | NUR ---
PT IN BED, HAD LARGE SOFT BM, AND WAS ALSO INCONTINENT OF URINE. PT ASSISTED TO CHANGE ATTENDS. PT ABLE TO LIFT HIPS, AND ALSO ABLE TO TURN SELF FROM SIDE TO SIDE. PT ASSISTED TO POSITION OF COMFORT. CALL LIGHT IN HAND, PERSONAL SUPPLIES IN REACH.
--- NOTE | 2017-03-21 12:06 | NUR ---
PT AMBULATING IN HALLS WITH PHYSICAL THERAPY, USING FWW, WITH GAIT BELT. PT APEARS TO BE TOLERATING WELL.
--- NOTE | 2017-03-21 12:32 | NUR ---
PT AMBULATED WITH PHYSICAL THERAPY, AND WORKED ON THE NUSTEP FOR 20 MINUTES PER PHYSICAL THERAPIST.
--- NOTE | 2017-03-21 13:03 | NUR ---
PT SITTING UP IN RECLINER, FAMILY IN VISITING PT. PT DENIED NEEDS. NO S/S DISTRESS OR DISCOMFORT AT THIS TIME.
--- NOTE | 2017-03-21 15:39 | NUR ---
PT IN BED. DENIED PAIN. STATED THAT HE WANTED TO REST. DENIED NEEDS.
--- NOTE | 2017-03-21 16:27 | NUR ---
PATIENT AND I WALKED 3 LAPS AROUND MED SURG. HAD GAIT BELT ON AND ALSO USED A WALKER.
--- NOTE | 2017-03-21 17:08 | NUR ---
PT DOING WELL. DENIED PAIN THROUGHOUT SHIFT. INCISION BEHIND RIGHT EAR HAS SUTURES INTACT, WNL. RIGHT FACE CONTINUES TO HAVE DROOP, WITH DIFFICULTY BLINKING RIGHT EYE. PT ALERT, ORIENTED X 3. IS QUINAULT. UP WITH 1 PERSON ASSIST. AMBULATED IN HALLS WITH PHYSICAL THERAPY, WELL WITH NURSING STAFF. ALSO WORKED IN THERAPY ROOM WITH PHYSICAL THERAPY.
--- NOTE | 2017-03-21 19:17 | NUR ---
PT C/O 3/10 PAIN TO RIGHT HEAD. GAVE OXYCODONE 2.5 MG PO PRN.
--- NOTE | 2017-03-21 19:29 | NUR ---
PT ASSISTED IN BRUSHING HIS TEETH. C/O 05/08 PAIN TO RIGHT SIDE OF HEAD. GAVE OXYCODONE 2.5 MG PO PRN. PT STATED THAT HE WANTED TO SHOWER. NOTIFIED STACY GODOY OF PT'S REQUEST.
--- NOTE | 2017-03-21 20:49 | NUR ---
COOP WITH ASSESSMENT, NO FURTHER C/O PAIN, WAS MEDICATD EARLIER. NO REQUESTS
--- NOTE | 2017-03-21 21:03 | NUR ---
Coop with assessment, r behind ear sutures intact, dry, pink, well approx. inc of urine, changed. no c/o pain
--- NOTE | 2017-03-22 00:02 | NUR ---
Resting, no requests, no resp distress
--- NOTE | 2017-03-22 05:44 | NUR ---
RN VALENTÍN AND I CHANGED PATIENT'S WET ATTENDS.
--- NOTE | 2017-03-22 08:38 | NUR ---
PT WORKING WITH OCCUPATIONAL THERAPY, GOT UP TO BATHROOM FROM BED WITH 1 PERSON ASSIST, WITH FWW. IS SITTING ON TOILET ATTEMPTING TO VOID. WAS INCONTINENT OF URINE IN ATTENDS. PT DID REPORT FEELING DIZZINESS UPON STANDING, WHICH RESOLVED AFTER A SHORT TIME STANDING IN PLACE. PT THEN BACK TO BED, SITTING UP AT EDGE OF BED, EATING BREAKFAST. PT'S FRIEND NOW IN ROOM, VISITING WITH PT. PT TOLERATED AMBULATION TO AND FROM BATHROOM WELL.
--- NOTE | 2017-03-22 09:58 | NUR ---
PT REMAINS SITTING UP AT EDGE OF BED, IS STILL EATING HIS BREAKFAST. HAS 2 FRIENDS AT BEDSIDE VISITING. PT DENIED PAIN, DENIED NEEDS AT THIS TIME. CALL LIGHT AND PERSONAL SUPPLIES IN REACH.
--- NOTE | 2017-03-22 10:00 | NUR ---
PATIENT SITTING UP ON SIDE OF BED EATING BREAKFAST AND VISITING WITH FRIENDS. PATIENT AGREED TO CALL WHEN HE'S DONE FOR VITALS.
--- NOTE | 2017-03-22 10:30 | NUR ---
PATIENT CALLED TO BE ADJUSTED IN BED. REPORTER TALKED TO NEGRO ABOUT ADL'S TODAY. PATIENT WOULD LIKE TO SHAVE AND WOULD LIKE TO BRUSH HIS WHEN HE'S UP FOR SHOWER. CALL BUTTON IN REACH. NO OTHER NEEDS AT THIS TIME.
--- NOTE | 2017-03-22 11:49 | NUR ---
PT SITTING UP IN BED. REQUESTED ARTIFICIAL TEARS EYE DROPS. DENIED OTHER NEEDS.
--- NOTE | 2017-03-22 12:08 | NUR ---
PT IN BED, UP WITH FWW. AMBULATED IN HALLS WITH FWW WITH 1 PERSON ASSIST USING GAIT BELT. PT BACK TO ROOM, IS NOW SITTING UP IN RECLINER. PERSONAL SUPPLIES AND CALL BUTTON IN REACH. PT DENIED PAIN, DENIED OTHER NEEDS.
--- NOTE | 2017-03-22 13:00 | NUR ---
THIS ADVERTISING SALES ASSISTANT ORDERED THE PAITIENT LUNCH. ASSISTED PATIENT WITH SHAVE. AFTER LUNCH EDGAR WOULD LIKE TO GET UP TO THE BATHROOM BRUSH TEETH AND TAKE A SHOWER. CALL BUTTON IN REACH. NO OTHER NEEDS AT THIS TIME.
--- NOTE | 2017-03-22 13:45 | NUR ---
PT SITTING IN CHAIR EATING SOME SOUP. WELCOMED ME IN-MADE A COMMENT THAT HE SEEMED SOMEWHAT EMBARRASED THAT HE WAS SPILLING HIS SOUP. HAD A POSITIVE BUT BRIEF TIME WITH PT. PRAYED WITH PT AND HE INVITED ME TO COME BACK. WILL CONTINUE TO FOLLOW PT
--- NOTE | 2017-03-22 14:22 | NUR ---
PT UP, AMBULATING IN HALLWAYS WITH OZIEL, PHYSICAL THERAPIST, USING FWW AND GAIT BELT. APPEARS TO BE TOLERATING WELL.
--- NOTE | 2017-03-22 14:56 | NUR ---
PT SITTING UP IN RECLINER. C/O 09/07 PAIN TO RIGHT EYE/HEADACHE. GAVE OXYCODONE 2.5 MG PO PRN. PT DENIED OTHER NEEDS. IS DRINKING A VANILLA ENSURE AT THIS TIME. PERSONAL SUPPLIES AND CALL LIGHT IN REACH.
--- NOTE | 2017-03-22 15:09 | NUR ---
HAD A BRIEF VISIT WITH PATIENT THIS MORNING. HE IS ON A DYSPHAGIA- PUREED DIET WITH THIN LIQUIDS. HE SAYS HE HAS BEEN DOING OK WITH PUREED FOODS AND HAS BEEN GETTING FOODS HE LIKES. HE DRINKS JUICE ALONG WITH ENSURES ANYWHERE FROM 2 TO 5 A DAY AT HOME. WASN'T HERE EARLIER, SO I'LL HAVE TO TRY TO CATCH HER BECAUSE SHE MAY HAVE SOME DIET/NUTRITION QUESTIONS/CONCERNS.
--- NOTE | 2017-03-22 16:00 | NUR ---
ASSISTED PATIENT TO BATHROOM WITH ONE PERSON ASSIST WITH FWW. ORAL CARE DONE BY PATIENT AT SINK. PATIENT HAD A SHOWER WITH ONE PERSON ASSIST. PATIENT BACK TO CHAIR WITH CALL BUTTON IN REACH. NO OTHER NEEDS AT THIS TIME.
--- NOTE | 2017-03-22 16:19 | NUR ---
PT UP TO BATHROOM, BRUSHED TEETH, AND IS NOW GETTING INTO SHOWER WITH ASSISTANCE FROM STACY OH. PT HAS GOGGLES TO WEAR IN SHOWER FOR PROTECTION OF RIGHT EYE, WHICH STILL DOES NOT CLOSE FULLY UNLESS PT HOLDS CLOSED WITH HIS HAND. PT DENIED OTHER NEEDS AT THIS TIME.
--- NOTE | 2017-03-22 17:40 | NUR ---
PT DOING WELL. UP WITH FWW WITH 1 PERSON ASSIST. HAS RIGHT FACIAL DROOP WITH PARALYSIS. UNABLE TO CLOSE RIGHT EYE WITHOUT HOLDING CLOSED WITH HAND. RIGHT EYE IRRITATION, EYE DROPS PRN, WELL OXYCODONE PRN. PT HAD BM X 1 THIS SHIFT. UP IN RECLINER MOST OF SHIFT. AMBULATED IN HALLS WITH THIS RN, WELL PHYSICAL THERAPY. TOOK SHOWER THIS AFTERNOON WITH ASSIST FROM ADRIANO KUMAR. WORE GOGGLE IN SHOWER TO PROTECT RIGHT EYE. INR WAS 1.5, TOOK COUMADIN 5 MG PO THIS SHIFT. SUTURES RIGHT SIDE OF HEAD, BEHIND RIGHT EAR WNL, IS SINGLE SUTURE TO LUMBAR AREA. BOTH AREAS WNL. LUNGS CLEAR, DIM IN BASES, ENCOUARGED DEEP BREATH AND COUGH, WHICH PT RETURNED DEMONSTRATED WELL. PT IS SNOQUALMIE.
--- NOTE | 2017-03-22 17:58 | NUR ---
PT SITTING UP IN RECLINER. AND FRIEND IN ROOM VISITING WITH PT. ASSISTED PT IN ORDERING BREAKFAST. DENIED OTHER NEEDS AT THIS TIME.
--- NOTE | 2017-03-22 18:49 | NUR ---
PT C/O 5/10 PAIN TO RIGHT EYE, DESCRIBES PAIN "IRRITATION". GAVE OXYCODONE 2.5 MG PO PRN. PT SITTING UP IN RECLINER, EATING DINNER. PT DRINKING ENSURE WITH DINNER.
--- NOTE | 2017-03-22 19:15 | NUR ---
RECEIVED REPORT FROM RN. PATIENT SITTING UP IN CHAIR. DENIES NEEDS AT THIS TIME. CALL LIGHT WITHIN REACH.
--- NOTE | 2017-03-22 20:49 | NUR ---
PT REQUESTED TO USE BATHROOM. WAS UP IN RECLINER CHAIR. OFFERED AND HE ACCEPTED TO BRUSH HIS TEETH. NOW IN BED, WITH CALL LIGHT, PHONE AND ALL HIS PERSONAL ITEMS WITH HIS REACH. FRESH ICE WATER GIVEN.
--- NOTE | 2017-03-22 21:25 | NUR ---
PATIENT RESTING COMFORTABLY IN BED, BREATHING IS EVEN AND UNLABORED. REPORTS 5/10 PAIN IN RIGHT EYE. PRN TYLENOL GIVEN PER EMAR. DENIES FURTHER NEEDS AT THIS TIME. ASSESSMENT DONE, MEDICATIONS GIVEN. CALL LIGHT WITHIN REACH.
--- NOTE | 2017-03-22 22:00 | NUR ---
PATIENT CALLED STATING "I FEEL LIKE I AM HAVING AN ANXIETY ATTACK." UPON ENTERING ROOM, PATIENT'S BREATHING IS EVEN AND UNLABORED, DOES NOT APPEAR IN DISTRESS, POSITIONING IS CALM. PATIENT STATES "I GOT TO COUGHING AND MY LEGS GOT RESTLESS. SEEMS LIKE IT HAS GONE AWAY NOW. CAN YOU ASK THE ICU AND HAVE THEM LOOK AT MY HEART?" CCU NURSE REVIEWED TELEMETRY, WHICH WAS UNREMARKABLE. INFORMED THE PATIENT THAT TELE WAS UNREMARKABLE AND THAT PATIENT IS TO INFORM NURSE IF HE BEGINS TO FEEL ANXIOUS AGAIN. HE DENIES FEELING ANXIOUS NOW. CALL LIGHT WITHIN REACH.
--- NOTE | 2017-03-22 23:48 | NUR ---
PATIENT RESTING COMFORTABLY IN BED, BREATHING IS EVEN AND UNLABORED. FLACC SCORE OF 0. CALL LIGHT WITHIN REACH.
--- NOTE | 2017-03-23 01:26 | NUR ---
PATIENT RESTING COMFORTABLY IN BED, BREATHING IS EVEN AND UNLABORED. CALL LIGHT WITHIN REACH.
--- NOTE | 2017-03-23 03:11 | NUR ---
PATIENT RESTING COMFORTABLY IN BED, BREATHING IS EVEN AND UNLABORED. CALL LIGHT WITHIN REACH.
--- NOTE | 2017-03-23 04:51 | NUR ---
PATIENT RESTING COMFORTABLY IN BED, BREATHING IS EVEN AND UNLABORED. CALL LIGHT WITHIN REACH.
--- NOTE | 2017-03-23 04:56 | NUR ---
PATIENT'S NIGHT WAS UNEVENTFUL. HE HAS BEEN RESTING COMFORTABLY IN BED THROUGHOUT SHIFT. VSS. PAIN WELL CONTROLLED WITH EYE DROPS AND TYLENOL. SUTURES ARE CDI. INCONTINENT AT TIMES, 1PA/FWW/GAIT BELT. NO ACUTE CHANGES FROM BEGINNING OF SHIFT.
--- NOTE | 2017-03-23 07:14 | NUR ---
PT SLEEPING SOUNDLY, NO S/S DISTRESS OR DISCOMFORT. RECIEVED BEDSIDE REPORT IN [place] AT PT'S DOOR DUE TO PT SLEEPING. RECIEVED REPORT FROM COLLEEN WAITE.
--- NOTE | 2017-03-23 08:52 | NUR ---
PT SITTING UP IN RECLINER, EATING BREAKFAST. STATED THAT HE FEELS "OK, JUST A LITTLE GROGGY". PT ALERT, ORIENTED X 4. FRIEND AT SIDE VISITING. DENIED NEEDS AT THIS TIME. TOOK AM MEDICATIONS, INCLUDING MIRILAX MIXED WITH AN APPLE ENSURE.
--- NOTE | 2017-03-23 09:00 | NUR ---
PATIENT SITTING UP IN CHAIR WITH BREAKFAST. RN IN ROOM WITH PATIENT. PATIENT'S FRIEND [place] NEXT TO HIM. CALL BUTTON IN REACH. TALKED ABOUT HIM CALLING AFTER HE'S DONE EATING FOR AM CARE. NO OTHER NEEDS AT THIS TIME.
--- NOTE | 2017-03-23 10:42 | NUR ---
PT SITTING UP IN RECLINER, DENIED NEEDS. DENIED PAIN AT THIS TIME. PERSONAL SUPPLIES AND CALL BUTTON IN REACH.
--- NOTE | 2017-03-23 10:53 | NUR ---
PATIENT UP TO BATHROOM. HANDS AND FACE WASHED,HAIR COMBED, AND ORAL CARE DONE BY PATIENT. PATIENT REFUSED SHOWER, BATH AND CHANGE OF CLOTHES. WILL TRY THIS AFTERNOON.
--- NOTE | 2017-03-23 11:12 | NUR ---
PT SITTING UP IN RECLINER. GAVE PT EYE DROPS TO RIGHT EYE PER PT'S REQUEST. CALL LIGHT AND PERSONAL SUPPPLIES IN REACH. PT DENIED OTHER NEEDS.
--- NOTE | 2017-03-23 13:54 | NUR ---
PT SITTING UP IN RECLINER, VISITING WITH FRIEND. DENIED NEEDS.
--- NOTE | 2017-03-23 15:19 | NUR ---
PT DOING WELL. CHECKED ON. PT HAS CALL LIGHT IN REACH
--- NOTE | 2017-03-23 15:50 | NUR ---
PT SITTING UP IN RECLINER, VISITING WITH FRIEND. STATED THAT HE IS HAVING SOME PAIN TO HIS RIGHT EYE, BUT STATED THAT HE DOES NOT WANT EYE DROPS OR PO PAIN MEDICATION AT THIS TIME. STATED THAT HE WILL CALL WHEN HE WANTS THESE.
--- NOTE | 2017-03-23 16:11 | NUR ---
PT C/O 5/10 PAIN TO RIGHT EYE, IRRITATION. GAVE OXYCODONE 2.5 MG PO PRN. PT NOW UP WITH PHYSICAL THERAPY, IN THERAPY ROOM ERXERCISING.
--- NOTE | 2017-03-23 16:31 | NUR ---
PT UP WITH FWW WITH 1 PERSON ASSIST. WORKED WITH PHYSICAL THERAPY. ALERT, ORIENTED X 4. C/O 5/10 "IRRITATION" PAIN TO RIGHT EYE, GAVE OXYCODONE 2.5 MG PO PRN AT APROXIMATELY 1600. PT HAD A LARGE BM THIS SHIFT. SURGICAL SITES WITH SUTURES TO RIGHT SIDE OF HEAD AND TO LOWER BACK AREA HAVE SUTURES INTACT, AND ARE WNL. PT HAS RIGHT FACIAL PALSEY, WITH RIGHT EYE DROOPING OPEN. PT IS UNABLE TO CLOSE WITHOUT USING HIS HAND TO HOLD EYE CLOSED. USES EYE PATCH AT TIMES.
--- NOTE | 2017-03-23 18:00 | NUR ---
PATIENT SITTING UP IN CHAIR WITH DINNER. CALL BUTTON IN REACH. NO OTHER NEEDS AT THIS TIME.
--- NOTE | 2017-03-23 19:53 | NUR ---
TOOK PATIENT TO THE BATHROOM. ORAL CARE, WASH HANDS AND FACE DONE. PATIENT IS ON BED NOW. CALL LIGHT WITHIN REACH.
--- NOTE | 2017-03-23 20:10 | NUR ---
BEDSIDE REPORT RECEIVED FROM OFFGOING RN. PT DENIES NEEDS AT THIS TIME. CALL LIGHT WITHIN REACH.
--- NOTE | 2017-03-23 23:03 | NUR ---
PT LYING IN BED WITH EYES CLOSED. PT WAKES EASILY. STATES THAT PAIN IS WELL CONTROLLED WITH OXYCODONE ADMINISTRATION. PT ASSESSMENT COMPLETE. PT DENIES OTHER NEEDS AT THIS TIME. CALL LIGHT WITHIN REACH.
--- NOTE | 2017-03-24 01:15 | NUR ---
PT CALLS, REQUESTS ATTENDS BE CHANGED. PT ABLE TO LIFT BUTTOCKS OFF OF BED FOR ATTENDS CHANGE. DENIES OTHER NEEDS AT THIS TIME. CALL LIGHT IN PT'S HAND.
--- NOTE | 2017-03-24 03:24 | NUR ---
PT RESTING IN BED WITH EYES CLOSED. RESPIRATIONS EVEN AND UNALBORED. NO S/SX OF DISTRESS NOTED. PT APPEARS TO BE SLEEPING. CALL LIGHT IN PT'S HAND. LIGHT ON IN ROOM PER PT REQUEST.
--- NOTE | 2017-03-24 04:42 | NUR ---
OXYCODONE X 1 FOR R EYE PAIN THIS SHIFT. PT REQUESTING EYE DROPS APPROPRIATELY PRN. SUTURES TO R NECK AND BACK C/D/I. INCONTINENT, PT CALLS APPROPRIATELY TO BE CHANGED. 1 PA WITH FWW. NO IV ACCESS.
--- NOTE | 2017-03-24 05:16 | NUR ---
PT CALLED TO HAVE HIS ATTENDS CHANGED. INCONT URINE. PERICARE DONE, ATTENDS CHANGED. HAS NO OTHER NEEDS.
--- NOTE | 2017-03-24 07:35 | NUR ---
REPORT RECEIVED FROM COLLEEN CANO. CHANGED PT DEPENDS PER REQUEST. PT DENIES CONCERNS. ORDERED BREAKFAST.
--- NOTE | 2017-03-24 08:24 | NUR ---
Patient up with OT. After am care with OT. Patient to bedside chair. Meds given. Breakfast served. Patient steady with standby assist only and FWW. Patient able to take meds without difficulty, and patient able to feed self independently. Call light within reach.
--- NOTE | 2017-03-24 09:46 | NUR ---
ADMINISTERED MEDS WITH RN STUDENT JOHN. PT ASKED FOR EYE DROPS. PLACED IN EYE WO DIFF. PT CONTINUES TO EAT BREAKFAST. STATES IT IS GOOD TODAY.
--- NOTE | 2017-03-24 10:40 | NUR ---
PT UP TO BATHROOM. STANDYBY ASSIST WITH FWW. PT RETURNED TO BED. PT PLANS TO REST. CALL LIGHT WITHIN REACH.
--- NOTE | 2017-03-24 13:03 | NUR ---
PATIENT UP TO BATHROOM. STANDYBY ASSIST WITH FWW. PATIENT RETURNED TO BEDSIDE CHAIR. LUNCH DELIVERED. CALL LIGHT WITHIN REACH. PATIENT DENIES ANY NEEDS AT THIS TIME.
--- NOTE | 2017-03-24 13:39 | NUR ---
PASTOR MILAN IN TO SEE PT. PT EATING LUNCH AND HAS NO CONCERNS.
--- NOTE | 2017-03-24 13:57 | NUR ---
PT UP AMBULATING IN HALLS AT THIS TIME WITH PHYSICAL THERAPY. NO DISTRESS NOTED. PT SPOUSE CALLED TO REPORT TO NURSES STATION THAT SHE HAS MADE AN APPOINTMENT FOR EYE DOCTOR TOMORROW AT 1445, SPOUSE WILL PICK PT UP BEFORE APPOINTMENT AND RETURN HIM AFTER.
--- NOTE | 2017-03-24 14:18 | NUR ---
PT WAS FINISHING LUNCH. HE SEMED TO ENJOY HIS SOUP AND WAS STARTING SOME ICE CREAM. GOOD VISIT-HE SEEMS TO ENJOY COMPANY, AND IS VERY APPRECIATIVE OF TIME SPENT WITH HIM. 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 PT REQUESTED PRAYER, WILL CONTINUE TO FOLLOW
--- NOTE | 2017-03-24 14:30 | NUR ---
REPORT RECEIVED FROM RICK MACIAS. PT SITTING IN CHAIR, DENIES NEEDS AT THIS TIME. DISCUSSED WITH DR. MARCELLO HUGHES ORDER, ORDER WAS DISCONTINUED ON 03/20/17 BY PHARMACY. CALLED PHARMACY TO CONTINUE MEDICATION. MEDICATION LABELED AND AT BEDSIDE.
--- NOTE | 2017-03-24 15:25 | NUR ---
PT SITTING IN CHAIR. LACRILUBE AND ARTIFICIAL TEARS GIVEN PER ORDER. PT COMPLAINT OF EYE PAIN, DISCUSSED PRN ORDER FOR ARTIFICIAL TEARS. PT VERBALIZES UNDERSTANDING. PT DENIES OTHER NEEDS AT THIS TIME.
--- NOTE | 2017-03-24 17:21 | NUR ---
PT SITTING IN CHAIR. PT ASSISTED TO BATHROOM. DINNER TRAY SET UP. AT BEDSIDE. DISCUSSED EYE OINTMENT WITH PT AND . PT PROVIDED WITH 5 MG COUMADIN, VERIFIED WITH RICK MACIAS. PT ALSO GIVEN 1 DROP ARTIFICIAL TEARS FOR EYE DRYNESS. PT DENIES OTHER NEEDS AT THIS TIME.
--- NOTE | 2017-03-24 17:30 | NUR ---
PT WALKED MI WITH PHYSICAL THERAPY, TOLERATED WELL. PT TOLERATING DYSPHAGIA DIET, INCREASED APPETITE, ENSURE WITH MEALS. INCISION TO RIGHT NECK WITH SUTURES IN PLACE, WITHOUT DRAINAGE OR REDNESS. PT ON ROOM AIR, LUNG SOUNDS CLEAR AND DIMINISHED. 1PA WITH FWW. VOIDING QS. GIVEN TYLENOL X1 FOR EYE PAIN, EYE DROPS NEEDED AND LACRILUBE.
--- NOTE | 2017-03-24 18:01 | NUR ---
LACRILUBE APPLIED TO RIGHT EYE. PT REQUESTING NAILS TO BE CLIPPED, DISCUSSED POLICY WITH PT AND , OFFERED NAIL FILE, DECLINED. PT EATING DINNER. PT DENIES OTHER NEEDS AT THIS TIME.
--- NOTE | 2017-03-24 19:05 | NUR ---
IN ROOM FOR REPORT, PT IS VISITING ON THE PHONE AT THIS TIME WITH HIS SISTER. PT HAS NO REQUESTS AT THIS TIME AND CALL LIGHT IS WITHIN REACH.
--- NOTE | 2017-03-24 19:39 | NUR ---
PATIENT IN CHAIR, FAMILY IN ROOM. WHITEBOARD UPDATED. ROOM TIDIED.
--- NOTE | 2017-03-24 20:30 | NUR ---
HELPED PT TO RESTROOM FROM CHAIR WITH FWW. PT IS BACK IN BED AND EVENING MEDICATIONS WERE GIVEN. PT'S INCISIONS BEHIND RT EAR ARE HEALING AND SLIGHTLY SCABBED WITH WELL APPROXIMATED EDGES. PT COMPLAINS OF EYE PAIN: EYE DROPS, OINTMENT, AND 2.5 MG OF OXYCODONE GIVEN. DID NOT VISUALIZE PT'S COCCYX D/T DRESSING IN PLACE. PT HAD RT FACIAL PALSY. PT IS READY FOR BED AND HAS NO FURTHER REQUESTS.
--- NOTE | 2017-03-24 22:18 | NUR ---
PT IS RESTING WITH EYES CLOSED, DOES NOT APPEAR TO BE IN ANY PAIN. RESPIRATIONS ARE EVEN AND NON LAOBORED.
--- NOTE | 2017-03-25 01:30 | NUR ---
PT IS RESTING WITH EYES CLOSED, RESPIRATIONS EVEN AND NONLABORED. CALL LIGHT WITHIN REACH.
--- NOTE | 2017-03-25 04:49 | NUR ---
PT SLEPT WELL THROUGH THE NIGHT. COMPLAINED OF EYE PAIN BEFORE GOING TO BED AND WAS GIVEN EYE DROPS, OINTMENT, AND 2.5 MG OXYCODONE AND HAS NOT COMPLAINED OF PAIN THROUGH THE REST OF THE NIGHT. PT AMBULATES TO THE RESTROOM WITH FWW STANDYBY ASSIST AND IS VOIDING QS. SUTURES BEHIND RT EAR ARE CDI WITHOUT DRAINAGE. PT HAS HIS OWN COMPRESSION SOCKS ON.
--- NOTE | 2017-03-25 06:30 | NUR ---
PT IS RESTING WITH EYES CLOSES, RESPIRATIONS EVEN AND NONLABORED. CALL LIGHT IS WITHIN REACH.
--- NOTE | 2017-03-25 09:34 | NUR ---
PATIENT UP TO RECLINER, APPEARS TO BE TOLERATING WELL. GOOD APPETITE, ATE MOST OF BREAKFAST. NO COMPLAINTS OF PAIN THIS MORNING. PATIENT STATES " I AM HAVING A GOOD DAY, JUST GOT TO TALK TO MY ".
--- NOTE | 2017-03-25 09:55 | NUR ---
PT'S VITALS WERE TAKEN NOW PT IS WORKING WITH OCCUPATIONAL THERAPY. PT DID NOT NEED ANYTHING AT THE MOMENT
--- NOTE | 2017-03-25 14:10 | NUR ---
PT RESTING IN BED. SEEMED TO BE FEELING BETTER TODAY. HE IS ALERT AND ALSO ORIENTED. PT ALWAYS EXPRESSES HIS APPRECIATION FOR VISITS. HAD PRAYER WITH PT, WILL CONTINUE TO FOLLOW NEEDED
--- NOTE | 2017-03-25 16:28 | NUR ---
PATIENT BACK FROM EYE APPOINTMENT. DR. GUZMAN WROTE NOTE TO KEEP RIGHT EYE VERY MOIST DURING DAY AND AT NIGHT. 2. WEAR MOISTURE CHAMBER- EITHER SUNGLASSES OR SWIM GOGGLES AND 3. KEEP DR. GUZMAN INFORMED. CALL TO CLINIC TO VERIFY DR. GUZMAN ORDERS AND IF ANY CHANGES NEEDED TO BE MADE TO THE EYEDROP ORDERS.
--- NOTE | 2017-03-25 16:41 | NUR ---
VISION CLINIC NURSE CALLED BACK TO [facility] FLOOR, VERIFYING NO CHANGES TO ORDERS.
--- NOTE | 2017-03-25 19:03 | NUR ---
REPORT RECEIVED, PT IS SITTING IN CHAIR VISITING WITH FAMILY. CALL LIGHT WITHIN REACH.
--- NOTE | 2017-03-25 19:39 | NUR ---
CALL TO DR. ARMENDARIZ REPORTING PATIENT'S COMPLAINTS OF PAIN AND REQUEST FOR MORE OXYCODONE. EXPLAINED TO DR. ARMENDARIZ THAT PATIENT REPORTED HE HAD TAKEN OFF HIS SUNGLASSES WHILE GOING TO APPOINTMENT AND THE WIND HAD IRRITATED HIS EYE. RIGHT EYE APPEARS RED AND DRY, THIS NURSE IRRIGATED WITH EYE DROPS THEN APPLIED THE OINTMENT TO LID BASE. NEW ORDER FROM DR. ARMENDARIZ TO ADMINISTER 2.5MG OXYCODONE PO NOW, AND ORDERED ANOTHER TYPE OF EYE DROP FOR PATIENT TO USE. DISCUSSED WITH ONCOMING NURSE POC.
--- NOTE | 2017-03-25 20:30 | NUR ---
Pt changed into pj's with fair amount of assist. Up to brp, used urinal, voided 150cc yellow urinal, wears attends, uses fww, back to bed, no c/o pain at this time
--- NOTE | 2017-03-25 21:00 | NUR ---
PT ASSESSMENT COMPLETE AND EVENING MEDICATIONS GIVEN. OXYCODONE 2.5 MG GIVEN FOR EYE PAIN AND PT HAS NEW SPECIAL GLASSES ON THAT HE RECEIVED FROM THE EYE DOCTOR TODAY. SUTURES BEHIND RT EAR CDI, PLACES GAUZE AT TOP BETWEEN GLASSES EAR PIECE AND SUTURES FOR COMFORT. LUNGS ARE CLEAR ON RA AND PT USES I.S. AND ACAPELLA. BROUGHT PT ENSURE TO DRINK WITH HIS MEDICATIONS. PT HAS NO OTHER REQUESTS AT THIS TIME. CALL LIGHT IS WITHIN REACH.
--- NOTE | 2017-03-26 01:17 | NUR ---
PT IS AWAKE IN BED DRINKING ENSURE. HE EXPRESSED HIS APPRECIATION FOR ALL THE SAFE HERE AND THE CARE HE IS RECEIVING. PT HAS NO REQUESTS AT THIS TIME, CALL LIGHT IS WITHIN REACH.
--- NOTE | 2017-03-26 04:32 | NUR ---
PT IS RESTING WITH EYES CLOSED, PT REMOVED SPECIAL GLASSES, AND RESPIRATIONS ARE EVEN AND NONLABORED. CALL LIGHT IS WITHIN REACH.
--- NOTE | 2017-03-26 04:34 | NUR ---
PT SLEPT WELL THROUGH MOST OF THE NIGHT WITHOUT COMPLAINTS OF EYE PAIN SINCE MEDICATIONS WERE GIVEN BEFORE BED. HE WORE HIS NEW SPECIAL GLASSESS FROM THE EYE DOCTOR MOST OF THE NIGHT. PT'S SUTURES ARE DRY AND INTACT. HE VOIDS IN THE RESTROOM WITH 1PA AND FWW.
--- NOTE | 2017-03-26 07:30 | NUR ---
REPORT RECEIVED FROM MANJINDER. PATIENT RESTING IN BED APPEARS TO BE SLEEPING DURING REPORT. NO APPARENT DISTRESS NOTED. RR EVEN/UNLABORED.
--- NOTE | 2017-03-26 09:24 | NUR ---
PT IS SITTING UP IN CHAIR WITH CALL LIGHT IN REACH. PT IS VISITING WITH A FRIEND AND DID NOT NEED ANYTHING AT THE MOMENT
--- NOTE | 2017-03-26 10:35 | NUR ---
PATIENT UP TO CHAIR, EATING BREAKFAST. REPORTED PAIN AND ON THE RIGHT EYE. PATIENT WAS MEDICATED. MORNING ASSESSMENT DONE. MORNING MEDS DONE. INCISION ON BEHIND THE RIGHT EAR OPEN TO AIR AND WNL WITH SOME STITCHES IN PLACE. LUNGS CLEAR. POSITIVE BOWEL TONES. CALL LIGHT IN REACH.
--- NOTE | 2017-03-26 12:08 | NUR ---
PATIENT WAS ASSISTED TO BATHROOM TO VOID. THEN HELP BACK TO BED. LUNCH WAS ORDERED AND PATIENT IS RESTING IN BED AT THIS TIME. NO APPARENT DISTRESS NOTED.
--- NOTE | 2017-03-26 12:24 | NUR ---
PATIENT OFF THE FLOOR TO X-RAY.
--- NOTE | 2017-03-26 13:56 | NUR ---
PT RESTING IN BED TODAY, WITH ODEN ON AND SUNGLASSES ON. HE BEGAN TO TELL ME A STORY ABOUT THE GLASSES AND HE RAMBLED. HAD TROUBLE GETTING TO THE POINT OF STORY. STAFF CAME IN AND HE STILL WANTED TO TELL THIS STORY. HE ALSO HAD A FRIEND COME IN TO VISIT. I WILL LET THEM VISIT, AND FINISH THE STORY ANOTHER TIME. PT HAD LET LUNCH GET COLD, UNTOUCHED. WILL FOLLOW NEEDED
--- NOTE | 2017-03-26 15:10 | NUR ---
PATIENT RESTING IN BED AT THIS TIME. NO COMPLAINTS. EYES DROPS APPLIED IN RIGHT EYES.
--- NOTE | 2017-03-26 16:06 | NUR ---
AT 0810 THIS MORNING I CHANGE THE PATIENT AND GOT HIM UP TO SIT IN HIS CHAIR FOR BREAKFAST AND ALSO THE BED LINENS.
--- NOTE | 2017-03-26 18:39 | NUR ---
PATIENT HAD A FAIR DAY. UP TO CHAIR MOST OF THE DAY. NO IV ACCES. EYES DROP SCHEDULED. RIGHT EYE PAIN CONTROL WITH PRN OXY AND TYLENOL. 1 PERS ASSIST WITH FWW. INCONTINENT SOMETIME. CALL APPROPRIATELY.
--- NOTE | 2017-03-26 19:25 | NUR ---
ROUNDED CHARGE. PATIENT IS UP IN THE RECLINER WITH VISITORS IN THE ROOM. PATIENT DENIES ANY NEEDS AT THIS TIME. NO COMMENTS, QUESTIONS, CONCERNS, OR NEEDS NOTED. CALL LIGHT IN REACH.
--- NOTE | 2017-03-26 19:30 | NUR ---
BEDSIDE REPORT RECEIVED FROM COLLEEN GUTHRIE. PT SITTING UP IN CHAIR, EATING COOKIES, DRINKING ENSURE. FAMILY IN ROOM. PT HAS GLASSES ON, STATES THEY ARE HELPING WITH EYE IRRITATION. RIGHT EYE REDDENED. CALL LIGHT IS IN REACH, PT HAS NO REQUESTS AT THIS TIME.
--- NOTE | 2017-03-26 20:30 | NUR ---
PT ASSESSMENT COMPLETE. PT IS ALERT, ORIENTED X 3, FLAT AFFECT, FORGETFUL, REPEATS SELF. PUPIL IN RIGHT EYE NON-REACTIVE, CONJUNCTIVA RED, KETOROLAC EYE DROPS APPLIED. PT STATES PAIN IS 6/10 IN RIGHT EYE, PRN OXYCODONE WAS ADMINISTERED. ASSISTED PT WITH SBA AND FWW TO AMBULATE TO RESTROOM FOR 300 ML VOID, BRUSH TEETH, USE MOUTH RINSE. PT BACK IN BED AT THIS TIME, PERSONAL SUPPLIES, CALL LIGHT IN REACH. TRAY TABLE CLEARED. FACILITIES COORDINATOR MAY IN ROOM FOR VITALS.
--- NOTE | 2017-03-26 20:48 | NUR ---
DID VITALS AND CHARTED THEM. WILL GO BILINGUAL COUNTER SALES RETAIL TO [employer] FOR I&OS. PT WAS SITTING IN HIS CHAIR WHEN I LEFT HIS ROOM. CALL LIGHT AND BEDSIDE TABLE WITHIN REACH.
--- NOTE | 2017-03-27 00:10 | NUR ---
PT SLEEPING, AWAKENS TO DOOR OPENING, PT LYING IN BED, NO REQUESTS AT THIS TIME. LIGHTS OFF IN ROOM.
--- NOTE | 2017-03-27 00:39 | NUR ---
PT USED HIS CALL LIGHT AND ASKED SOMEONE TO TURN ON HIS LIGHT. I WENT INTO HIS ROOM AND TURNED ON THE LIGHTS HE WANTED ME TO TURN ON FOR HIM. HE THEN ASKED WHAT TIME IT WAS? I TOLD HIM IT IS 12:30AM. HE SAID OH OK I HAVE AWHILE LEFT TO SLEEP. HE SAID HE WAS CONFUSED TO WHAT TIME IT WAS. HE ASKED IF I COULD CHANGE HIS ATTEND. I DID AND GOT HIM COMFORTABLE IN HIS BED AGAIN. HE SAID HE WAS GOING TO GO BACK TO SLEEP. BEDSIDE TABLE AND CALL LIGHT WITHIN REACH.
--- NOTE | 2017-03-27 02:29 | NUR ---
PT APPEARS TO BE SLEEPING, LIGHTS ON IN ROOM PER PT REQUEST TO SEE CLOCK. PT HAS SUNGLASSES ON, BREATHING NON-LABORED.
--- NOTE | 2017-03-27 04:30 | NUR ---
PT CONTINUES TO SLEEP, LIGHTS ON IN ROOM, BREATHING NON-LABORED, EQUAL CHEST RISE BILATERALLY.
--- NOTE | 2017-03-27 04:44 | NUR ---
PT USED CALL LIGHT AND ASKED TO BE CHANGED. I WENT INTO PT ROOM AND CHANGED HIS ATTEND. ASKED PT IF HE NEEDED ANYTHING ELSE AT THIS TIME? HE SAID NO HE DID NOT. BEDSIDE TABLE AND CALL LIGHT WITHIN REACH.
--- NOTE | 2017-03-27 05:35 | NUR ---
CHANGED PTS ATTENDS HE WAS WET. CHARTED I&OS. PT NEEDED NOTHING ELSE AT THIS TIME. BEDSIDE TABLE AND CALL LIGHT IN REACH.
--- NOTE | 2017-03-27 06:41 | NUR ---
PT COMPLAINS OF PAIN IN RIGHT EYE, PRN AND SCHEDULED EYE DROPS ADMINISTERED FOR PAIN. PT HAS SLEPT THROUGHOUT SHIFT, WEARING SUN GLASSES FOR PROTECTION FROM LIGHT. PT HAS NOT REQUESTED PRN PAIN MEDICATIONS THIS SHIFT. STITCHES ON NECK CLEAN DRY AND INTACT, NO REDNESS NOTED. PT AMBULATING TO RESTROOM FOR VOIDS WITH FWW, GAIT STEADY, ABLE TO STAND WITH SBA. PT HAS HAD TWO EPISODES OF INCONTINENCE.
--- NOTE | 2017-03-27 07:46 | NUR ---
Warfarin dose for 03/26/17 was not ordered, therefore, patient received no warfarin 03/26/17. Give warfarin 7.5mg today, 03/27/17
--- NOTE | 2017-03-27 08:07 | NUR ---
PT ASSISTED UP TO CHAIR TO EAT BREAKFAST WITH SBA AND FWW. BEDSIDE REPORT RECEIVED FROM LIZETH MACIAS. PT WEARING NEW PRESCRIBED SUNGLASSES. CALL LIGHT WITHIN REACH. BELONGINGS WITHIN REACH. REPORTS NO PAIN AT THIS TIME. SCAR BEHIND RIGHT EAR HEALING WELL.
--- NOTE | 2017-03-27 08:51 | NUR ---
PT IN BED AWAKE. SBA TO CHAIR. SET UP FOR BRK. AM CARE.
--- NOTE | 2017-03-27 10:19 | NUR ---
VITALS DONE AND I AND O
--- NOTE | 2017-03-27 16:22 | NUR ---
PT RESTING COMFORTABLY WITH SUNGLASSES ON IN BED BETWEEN CARES. PREFERS TO REST IN BED UNTIL DINNER COMES.
--- NOTE | 2017-03-27 17:40 | NUR ---
SWING BED PATIENT. 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 STITCHES BEHIND RIGHT EAR. INCISION HEALING WELL. SBA WITH FWW. RONALD PAZ. CHLORHEXIDINE MOUTH RINSE IN BATHROOM. EYE DROPS AT BEDSIDE. RECEIVING COUMADIN AND LOVENOX FOR HX PULM EMBOLUS AFTER SURGERY. INR 1.8 TODAY. WILL STAY UNTIL THERAPEUTIC. PT/OT/ST. DYSPHAGIA PUREED DIET. NO IV ACCESS. WEARS PRESCRIPTION EYE GLASSES MOST OF THE TIME.
--- NOTE | 2017-03-27 19:04 | NUR ---
TOOK PT TRAY. FRESH ICE WATER. VITALS AND I AND O
--- NOTE | 2017-03-27 19:35 | NUR ---
BEDSIDE REPORT RECEIVED FROM COLLEEN العراقي. PT SITTING UP IN CHAIR. DINNER TRAY REMOVED FROM ROOM, 75% OF MEAL CONSUMED. PT COMPLAINING OF 6/10 PAIN IN RIGHT EYE. ADMINISTERED 2.5 MG OXYCODONE, ALSO C/O DIETZ, ADMINISTERED PRN TYLENOL. PLAN TO WALK WITH PT THIS SHIFT. PT HAS CALL LIGHT IN REACH.
--- NOTE | 2017-03-27 20:05 | NUR ---
AMBULATED HALLWAY X 1 WITH PT, PT TOLERATED WELL WITH WALKING CANES, GAIT BELT AND SBA. PT RIGHT EYE RED, ADMNISTERED LUBRICATING EYE DROPS. LUNGS CLEAR THROUGHOUT ALL LOBES, HR REGULAR. CSM INTACT BILATERALLY WITH SOME WEAKNESS TO RIGHT SIDE NOTED. PT STATES PAIN 6/10 PRN OXYCODONE AND TYLENOL ADMINISTERED. PT IN RESTROOM FOR VOID WITH FWW, ORAL CARE COMPLETE, CHLOREHEXADINE RINSE COMPLETE. PT BACK TO BED AT THIS TIME, GLASSES ON. CALL LIGHT IN REACH.
--- NOTE | 2017-03-27 22:13 | NUR ---
IN PT ROOM, PT STATES "NO PAIN WORTH MENTIONING" DOES NOT RATE ANY PAIN FROM 0-10 WHEN ASKED. PT LYING IN BED, OFFERED TO USE RESTROOM, ASSISTED PT WITH SBA AND FWW TO RESTROOM FOR 200 ML VOID. PT NOW BACK TO BED, REQUESTING LIGHTS BE LEFT ON, SUNGLASSES ON AT THIS TIME. NO ADDITIONAL REQUESTS. CALL LIGHT IN REACH.
--- NOTE | 2017-03-28 00:26 | NUR ---
VITALS AND I&OS DONE AND CHARTED. PT NEEDS NOTHING ELSE AT THIS TIME. BEDSIDE TABLE AND CALL LIGHT WITHIN REACH.
--- NOTE | 2017-03-28 00:34 | NUR ---
PT SLEEPING AT THIS TIME, EYES CLOSED, BREATHING NON-LABORED, LIGHTS ON IN ROOM.
--- NOTE | 2017-03-28 02:48 | NUR ---
PT SLEEPING, BREATHING IS NON-LABORED, SUNGLASSES ON AND LIGHTS ON IN ROOM PER PT REQUEST. CALL LIGHT IS IN REACH.
--- NOTE | 2017-03-28 04:17 | NUR ---
CHANGED PT ATTENDS AND CHARTED IT. HE NEEDS NOTHING ELSE AT THIS TIME. BEDSIDE TABLE AND CALL LIGHT WITHIN REACH.
--- NOTE | 2017-03-28 05:52 | NUR ---
PT APPEARS TO BE SLEEPING, BREATHING IS NON-LABORED, RR 14, GLASSES ON AND LIGHTS ON IN ROOM. CALL LIGHT NEXT TO PT.
--- NOTE | 2017-03-28 07:01 | NUR ---
PT AMBULATED X 1 LAP AT START OF SHIFT, RECEIVED PRN OXYCODONE AND PRN TYLENOL X 1 FOR PAIN IN RIGHT EYE. PT RECEIVED EYE DROPS PRN X 1. PT SLEPT FOR MOST OF SHIFT WITH LIGHTS ON AND SUNGLASSES. INCONTINENT OF URINE, ATTENDS IN PLACE. PT AMBULATING WELL WITH SBA FWW AND CANES.
--- NOTE | 2017-03-28 07:40 | NUR ---
BEDSIDE REPORT RECEIVED FROM LIZETH MACIAS AT 0700. PT RESTING QUIETLY IN BED WITH PRESCRIPTION SUNGLASSES ON. AID ASSISTING PT TO BATHROOM AND THEN TO CHAIR NOW. THIS RN BROUGHT PT MORNING SCHEDULED MEDS. PLAN TO AMBULATE PATIENT IN HALLS X2 TODAY AND THERAPY TO WORK WITH PATIENT WELL.
--- NOTE | 2017-03-28 07:59 | NUR ---
TOOK PATIENT TO BATHROOM. GOT PATIENT BACK TO CHAIR AND READY FOR BREAKFAST.
--- NOTE | 2017-03-28 09:00 | NUR ---
PT AMBULATED 2 LAPS MED SURG UNIT WITH CANES BILAT AND GAIT BELT. SBA. PT TOLERATED WELL. PLAN TO AMBULATE PATIENT AFTER LUNCH.
--- NOTE | 2017-03-28 10:58 | NUR ---
INR still subtherapeutic at 1.8 on day #9 of warfarin therapy. May need to ordered additional enoxaparin, develope dosing regimen, and inquire for referal to [facility].
--- NOTE | 2017-03-28 14:43 | NUR ---
PT AMBULATING HALLS NOW WITH RAMP SUPERVISOR SBA. TOLERATING WELL.
--- NOTE | 2017-03-28 17:54 | NUR ---
PT AMBULATED HALLS X3 TODAY. SWING BED. 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 HX PE. LOVENOX AND COUMADIN. INCONTINENT OF URINE. INR 1.8 TODAY. NO CHANGE FROM YESTERDAY. OXYCODONE GIVEN AT 1300. NO IV ACCESS. DYSPHAGIA PUREED DIET. EYE DROPS AT BEDSIDE.
--- NOTE | 2017-03-28 19:54 | NUR ---
RECEIVED REPORT FROM DAY SHIFT RN. PATIENT IS RESTING IN BED WITH SPECIAL GLASSES ON. PATIENT DENIES ANY NEEDS. CALL LIGHT IN REACH.
--- NOTE | 2017-03-28 21:25 | NUR ---
PATIENT ASSESEMENT COMPLETED. PATIENTS EVENING MEDCIATIONS GIVEN PER ORDER. PATIENT DENIES ANY PAIN AT THIS TIME. PATIENTS STITCHES BEHIND HIS RIGHT EAR ARE C/D/I, WELL APPROXIMATED, AND OPEN TO AIR. PATIENT IS AAOX3. PATIENTS EYES DROPS AND OINTMENT APPLIED TO RIGHT EYE PATIENT TOLERATED ACTIVITY WELL. PATIENTS ATTEND IS DRY AT THIS TIME. PATIENT DENIES ANY FURTHER NEEDS AT THIS TIME. CALL LIGHT IN REACH.
--- NOTE | 2017-03-28 22:55 | NUR ---
LINUX ENGINEER ASSISTED PATIENT WITH ATTEND CHANGE. PATIENT DENIES ANY PAIN OR FURTHER NEEDS AT THIS TIME. CALL LIGHT IN REACH.
--- NOTE | 2017-03-29 01:17 | NUR ---
PATIENT IS RESTING IN BED WITH WITH GLASSES ON. BREATHING IS EVEN AND UNLBOARED, RR 17. LINDA LIGHT IN REACH.
--- NOTE | 2017-03-29 03:05 | NUR ---
PATIENT IS RESTING IN BED WITH SPECIALIZED GLASSES ON. PATIENT DID NOT MOVE WHEN ROOM WAS ENTERED. APPEARS TO BE ASLEEP. PATIENTS BREATHING IS EVEN AND UNLABORED, RR 15. CALL LIGHT IN REACH.
--- NOTE | 2017-03-29 04:52 | NUR ---
PATIENT RESTED WELL THROUGHOUT THE SHIFT. PATIENT IS ON A DYSPHAGIE PUREED DIET AND ENSURES ARE ENCOURAGED. PATIENT IS A SBA AND USES FWW IN THE ROOM, AND X2 CANES WHEN AMBULATING IN THE HALLWAY. PATIENT HAS NO IV. PATIENT IS SWING BED. PATIENT DOES HAVE STITCHES BEHIND RIGHT EAR THAT ARE C/D/I, WELL APPROXIMATED AND OPEN TO AIR. PATIENT IS AAOX3 AND USES CALL LIGHT APPROPRIATELY. PATIENT WEARS SPECIALIZED GLASSES TO PROTECT RIGHT EYE. PATIENT HAS PRN EYE DROPS AVAILABLE TO KEEP EYE MOIST. PATIENT DOES HAVE RIGHT SIDED FACIAL PARALYSIS.
--- NOTE | 2017-03-29 04:57 | NUR ---
PATIENT IS RESTING IN BED WITH EYES CLOSED ON HIS BACK. RR 17. CALL LIGHT IN REACH.
--- NOTE | 2017-03-29 06:07 | NUR ---
PATIENTS ATTEND CHANGED. PATIENT WAS INCONTINENT, VASQUEZ CARE PERFORMED. PATIENTS VITALS TAKEN AND RECORDED. PATIENT REPORTS NEW TINGLING IN RIGHT EAR. PATIENT DENIES ANY PAIN. PATIENT PROVIDED WITH APPLE JUICE PER REQUEST. PATIENT DENIES ANY FURTHER NEEDS AT THIS TIME. CALL LIGHT IN REACH.
--- NOTE | 2017-03-29 08:04 | NUR ---
ANSWERED CALL LIGHT PATIENT NEEDED TO BE CHANGED. CHANGED HIM NOW SITTING UP IN HIS CHAIR EATING HIS BREAKFAST ALSO LINENS WERE CHANGED. SHOWER HIM LATER.
--- NOTE | 2017-03-29 08:43 | NUR ---
pt sitting up in recliner eating breakfast. pt says he is tired. will plan to ambulate and help pt to bed for a nap. would like to shower today. plan for shower later.
--- NOTE | 2017-03-29 09:15 | NUR ---
Recommendation for warfarin therapy. Beginning 03/29/17. Warfarin 4mg tablets #30 tablets. Take 1 tablet PO every day in the evening. (total weekly dose = 28mg) Follow up with [facility]in Clinic with referral from Dr Barbour.
[2017-03-29] MEDS ORDERED: WARFARIN SODIUM4 MG PO (09:21)
--- NOTE | 2017-03-29 12:48 | NUR ---
OCCUPATIONAL STARTED WITH HIS SHOWER. THAN I HELPED HIM FINISH HIS SHOWER AND GET DRESSED. NOW SITTING UP IN CHAIR AND EATING HIS LUNCH. HE ALSO SHAVED.
--- NOTE | 2017-03-29 12:52 | NUR ---
CALLED AND LEFT A MESSAGE FOR TO FIGURE OUT A TIME TO SEND/ADJUNCT POLITICAL SCIENCE INSTRUCTOR PATIENT TO DISCHARGE HIM HOME TODAY. NO ANSWER. WILL WAIT TO HEAR BACK. PATIENT SITTING UP IN CHAIR NOW. RECEIVED SHOWER FROM OCCUPATIONAL THERAPIST AND COMPLIANCE SPEC THIS MORNING. KEY REMOVED EARLIER THIS MORNING BEHIND RIGHT EAR.
--- NOTE | 2017-03-29 14:05 | NUR ---
PT RESTING IN BED, WITH GOOD AN ON AND SUN GLASEES. HE WELCOMED SEEMD HAPPY TO SEE ME. I SHARED WITH HIM SOME PICS IRESHARA SALEH A FORMER WORK ASSOCIATE OF PT'S. HE [id number] TO ENJOY AND SHARED WITH ME SOMETHING ABOUT EACH ONE. HAD PRAYER WITH PT, AND HE TOLD ME HOW GREAT THE CARE IS HE RECEIVES AT [facility]. OUT OF ALL THE HOSPITALS HE HAS BEEN IN, HERE IS THE BEST CARE! AND THE MOST COMFORTABLE BEDS TOO. I THANKED HIM FOR HIS KIND WORDS
--- NOTE | 2017-03-29 14:32 | NUR ---
PT IN PHYSICAL THERAPY ROOM ON BIKE WITH JIMBO LUDWIG.
--- NOTE | 2017-04-01 11:03 | NUR ---
FAXED CHART NOTES INCLUDING FACESHEET, ORDER, H AND P, DC SUMMARY, PT, ST, OT EVALS AND NOTES TO [facility]. SPOKE WITH CANDY REGARDING THIS.
--- NOTE | 2017-04-01 14:34 | NUR ---
REFAXED CHART NOTES AND ORDERS TO HOME HEALTH. RECIEVED FAX CONFIRMATION. ALSO SPOKE WITH NICK FROM [facility] REGARDING THIS.
--- NOTE | 2017-04-06 16:24 | NUR ---
Patient referred to Coumadin Clinic upon discharge. He will have Home Health Services for approx 1 month, so the Home Health RN will check INR and give results to [facility] Pharmacist for assessment and dosing. 04/06/17 INR = 2.5. Patient has been taking warfarin 4mg daily since discharge from hospital 03/19/17. Intructions called to COLLEEN Templeton and patient's , Chela ([phone]) to continue warfarin 4mg daily & recheck INR 04/13/17
--- NOTE | 2017-04-14 12:15 | NUR ---
04/14/17 INR called in by Nahid. INR = 4.0 today. Instructions to hold today's (04/14/17) dose then take 1/2 tablet (=2mg) Wednesday & Wednesday and take 1 tablet (=4mg) all other days. Home Health RN to recheck INR in one week 04/21/17 and call results to [facility] Pharmacist [phone] for assessment and subsequent warfarin dosing. Instructions given to Nahid, RN [phone], who repeated back instructions and will relay to Chela, patient's . Chela's number [phone]
--- NOTE | 2017-04-21 12:26 | NUR ---
04/21/17. INR called in by Nahid. INR = 1.7 today. Dose on 04/12/17 was missed, therefore patient received total of 18mg over past 7 days. New Instructions to take 1/2 tablet (=2mg) Wednesday and Wednesday and 1 tablet (=4mg) all other days. (total weekly dose of 24mg. Home Health RN to recheck INR in one week, 04/28/17 and call results to [facility] Pharmacist [phone] for assessment and subsequent warfarin dosing. Instructions given to Nahid, COLLEEN [phone], who repeated back instructions and will relay to Chela, patient's . Chela's number is [phone]
--- NOTE | 2017-04-27 16:30 | NUR ---
04/27/17. INR called in by COLLEEN Whitfield. INR = 1.7 again today with 24mg for the week. New instructions: Has Warfarin 4mg tabs. Take 1&1/2 tab (= 6mg) today, then take 1/2 tablet (=2mg) Wednesday and Wednesday for total weekly dose 26mg (9% increase).Patient is discharged from home health and has an appointment next Wednesday. COLLEEN Whitfield repeated back instructions and will relay dosing instructions to Chela, patient's . RX called in to [facility], warfarin 4mg #30 Dr Barbour prpascual refills
== END 2017-03-29 15:30 | disposition home or self-care (01) | DRG 949 ==
LOC: MS 10:06
PROVIDERS: ADMIT Internal Medicine
DX: Z48.811 Encounter for surgical aftercare following surgery on the nervous system (principal); I26.99 Other pulmonary embolism without acute cor pulmonale; R53.81 Other malaise; G50.0 Trigeminal neuralgia; G51.0 Bell's palsy; K21.9 Gastro-esophageal reflux disease without esophagitis; Z79.01 Long term (current) use of anticoagulants
CPT/HCPCS: 36415; 85610; 92526; 92610; 94667; 94668; 94762; 97110; 97112; 97116; 97162; 97165; 97530; 97535; J1650

== ENCOUNTER 2018-08-24 18:07 | Emergency (ER) | payer MEDICARE, OTHER ==
[~2018-08-24] VITALS: Ht 170.2 cm; Wt 61.9 kg
[~2018-08-24 18:07] MED LIST changes: +DOXEPIN HCL10 MG PO; +PERIDEX473 M1 MM; +WARFARIN SODIUM4 MG PO
== END 2018-08-24 19:03 | disposition home or self-care (01) ==
LOC: ED 18:07
DX: H10.9 Unspecified conjunctivitis (principal); K21.9 Gastro-esophageal reflux disease without esophagitis; E03.9 Hypothyroidism, unspecified; E78.00 Pure hypercholesterolemia, unspecified; Z87.891 Personal history of nicotine dependence; Z88.8 Allergy status to other drugs, medicaments and biological substances; Z79.01 Long term (current) use of anticoagulants; Z79.899 Other long term (current) drug therapy
CPT/HCPCS: 90471; 90715; 99283

== ENCOUNTER 2019-04-28 15:10 | Emergency (ER) | payer MEDICARE, OTHER ==
[~2019-04-28] VITALS: Ht 170.2 cm; Wt 61.9 kg
== END 2019-04-28 17:07 | disposition home or self-care (01) ==
LOC: ED 15:10
DX: K92.2 Gastrointestinal hemorrhage, unspecified (principal); R10.13 Epigastric pain; K21.9 Gastro-esophageal reflux disease without esophagitis; E03.9 Hypothyroidism, unspecified; Z88.8 Allergy status to other drugs, medicaments and biological substances; Z79.899 Other long term (current) drug therapy
CPT/HCPCS: 80053; 83690; 85025; 85610; 85730; 96374; 99284-25

== ENCOUNTER 2019-04-30 15:07 | Observation (INO) | payer MEDICARE, OTHER ==
[~2019-04-30] VITALS: Ht 170.2 cm; Wt 64.9 kg
--- NOTE | 2019-04-30 19:00 | NUR ---
BEDSIDE REPORT RECEIVED FROM OFFGOING RN, MEERA. PT PARTICIPATES IN REPORT, JOKING WITH AIRFREIGHT OPERATIONS AGENT. PT DENIES NEEDS AT THIS TIME. CALL LIGHT IN REACH.
--- NOTE | 2019-04-30 19:41 | NUR ---
Cbg 39, dr Wu called and arrived to the room. Pt drinking apple juice at this time.
--- NOTE | 2019-04-30 19:47 | NUR ---
DR LEBRON IN ROOM, GAVE ORDER FOR D5LR @125ML/HR. CHECK BLOOD SUGAR NOW, AGAIN IN 1 HR AND AT 0200. PT GIVEN APPLE JUICE WITH SUGAR, AND GIVEN A PROTIEN SNACK. PT'S COLOR IS BETTER, SHAKING IS LESSENED. PT IS AWAKE AND ALERT, CONVERSATION NORMAL.
--- NOTE | 2019-04-30 20:00 | NUR ---
ASSISTED PATIENT TO USE THE BEDSIDE COMMODE.
--- NOTE | 2019-04-30 20:09 | NUR ---
DR. CARNEY NOTIFIED OF HYOGLYCEMIC EPISODE. NO NEW ORDERS RECIEVED. CLARIFICATION NPO AT 0300 VS MIDNIGHT.
--- NOTE | 2019-04-30 20:40 | NUR ---
PT ASSESSMENT COMPLETE. PT DENIES PAIN, NAUSEA, OR SOB. PT ASSISTED FROM COMMODE BACK TO BED. TOLERATED WELL. PT STATES THAT HE FEELS GENERALLY MUCH BETTER. STATES THAT EPISODE OF HYPOGLYCEMIA WAS FRIGHTENING FOR HIM. EDUCATION PROVIDED. PT STATES UNDERSTANDING. AGREES THAT HE IS DOING WELL NOW. CBG RECHECKED, 120. TELE # 8, HR SR. BT'S HYPERACTIVE. PT PASSING LIQUID STOOL. DENIES ABD TENDERNESS. PT DENIES FURTHER NEEDS. POC FOR THIS SHIFT DISCUSSED, PT STATES UNDERSTANDING, DENIES QUESTIONS. CALL LIGHT IN REACH.
--- OUTSIDE RECORDS SUMMARY | 2019-04-30 22:47 | XMS ---
PreManage Notification: FÉLIX CALDERON Security Application Packaging Specialist Events No recent Security Events currently on file CRITERIA MET - [facility] - 2 Visits in 30 Days CARE PROVIDERS Felix Barbour MD Primary Care Current PHONE: Unknown orabhijeet Case or Bottoming Room Supervisor Current PHONE: Unknown Denny has no Care Guidelines for this patient. Eddie VISIT COUNT (12 MO.) [address] [place] [address] TOTAL 3 NOTE: Visits indicate total known visits. 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
[2019-04-30] MEDS ORDERED: LISINOPRIL5 MG PO (22:59)
[2019-04-30] MEDS ORDERED: XALATAN2.5 ML OU (23:02)
[2019-04-30] MEDS ORDERED: SYSTANE NIGHTT3.5 GM OD (23:02)
[2019-04-30] MEDS ORDERED: OCUSOFT LID SC1 EACH TOP (23:04)
[2019-04-30] MEDS ORDERED: [UNRECOGNIZED DRUG - OTHER] OPTH (23:05)
[2019-04-30] MEDS ORDERED: REFRESH CELLUV1 EACH OD (23:06)
--- NOTE | 2019-04-30 23:18 | NUR ---
PT UTLIZES CALL LIGHT FOR BSC TO BE EMPTIED. PT HAVING LARGE AMOUND OF LIQUID BROWN STOOL. PT'S PRESENT. QUESTIONS AND CONCERNS ANSWERED AT THIS TIME. CALL LIGHT IN REACH.
--- NOTE | 2019-04-30 23:50 | NUR ---
PT AND SITTING ON BED. DISCUSSED PROCEDURE SCHEDULED FOR TOMORROW, PT AND HIS DENY QUESTIONS OR CONCERNS. PT SIGNED HIS CONSENT FORM. EXPRESSES GRATITUDE. DENIES FURTHER NEEDS. CALL LIGHT IN REACH.
--- NOTE | 2019-05-01 00:21 | NUR ---
PATIENT USED THE CALL LIGHT TO LET US KNOW THAT BEDSIDE COMMODE NEEDS TO BE EMPTIED. DONE EMPTIED BY THIS MANAGER RESPIRATORY. PATIENT DENIES ANY NEEDS AT THIS TIME. PATIENT IS VERY APPRECIATIVE.
--- NOTE | 2019-05-01 02:00 | NUR ---
PT ASSESSMENT COMPLETE. PT DENIES PAIN, NAUSEA, OR SOB. PT RESTING IN BED. VS AND ACCUCHECK OBTAINED. PT CONTINUES TO GET UP FREQUENTLY TO USE THE COMMODE. HAVING BROWN LIQUID STOOL WITH SOME CHUNKS PER CORN CROP SUPERVISOR REPORT. PT IS VERY THANKFUL FOR ALL CARE. DENIES FURTHER NEEDS AT THIS TIME. UNDERSTANDS HE WILL BE NPO IN APPROXIMATELY 1 HOUR. CALL LIGHT IN REACH.
--- NOTE | 2019-05-01 02:28 | NUR ---
ANSWERED CALL LIGHT AND EMPTIED THE BEDSIDE COMMODE. NO OTHER NEEDS AT THIS TIME.
--- NOTE | 2019-05-01 05:26 | NUR ---
PT UP OFF AND ON THROUGHOUT THE SHIFT. USING BSC FREQUENTLY, STOOLS LIGHT BROWN IN COLOR WITH SOME CHUNKS STILL PRESENT. NPO SINCE 299. ACCUCHECKS Q 6, LAST CBG 110. NO PAIN, NAUSEA, OR SOB. TELE # 8, SR. OK TO USE HOME EYE DROPS. INDEPENDENT TO COMMODE. USES CALL LIGHT APPROPRIATELY. IVF INFUSING.
--- NOTE | 2019-05-01 06:45 | CONS ---
[facility] [address], [place] [address] Signed DATE OF CONSULTATION: 04/30/2019 CHIEF COMPLAINT: Epigastric pain with blood per rectum. HISTORY OF PRESENT ILLNESS: Félix is a 78-year-old gentleman, who is at his ideal body weight and maintains good functional status. Apparently, he has used some Aleve recently, but he noted some epigastric abdominal pain radiating through to his back. He came to our emergency room on 04/28/2019. He was evaluated and allowed to go home. He came back with some additional dark blood with his bowel movements. At this time, it looks like his hemoglobin has dropped, so he was admitted to the internal medicine service. I have been asked to see him for consideration of upper and lower endoscopy. He has already been started on IV fluids and his bowel prep. He has been hemodynamically stable. He tells me his last colonoscopy was about 15 years ago in his early 60s. He was told that he had some very tiny polyps, but nothing to be too concerned about. He gives no family history of colon cancer or polyps. At one point, he had been on Coumadin because of a deep vein thrombosis, but he has been off that as well. 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 PAST SURGICAL HISTORY: Left inguinal hernia [place] [address] Moreno, right detached retina repair in 2006, left cataract surgery in 2008, right trigeminal nerve surgery in 2017 which has been quite helpful, and a colonoscopy around age 63, approximately [address] Moreno. SOCIAL HISTORY: He does not smoke or drink. He is to his at [phone]. They live in their house out in [place]. 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 He has 1 son. They prefer the [facility]. Dr. Kurtis North is primary care provider. He still drives and is quite independent. FAMILY HISTORY: Brother had ALS. Dad had some type of presumed cardiac event. No family history of colon cancer or polyps to his knowledge. REVIEW OF SYSTEMS: He mentioned the titanium weight in his right eyelid to help his eyelid close. Electronically Signed By: DNOY CARNEY MD 05/01/19 0645 PATIENT NAME: FÉLIX CALDERON CONSULTATION DATE OF : 38 REPORT #: [id number] PHYSICIAN: DONY CARNEY MD PCP: KURTIS NORTH MD REPORT IS CONFIDENTIAL AND NOT TO BE RELEASED WITHOUT AUTHORIZATION [facility] [address], [place] [address] Signed ALLERGIES: He is allergic to tizanidine. MEDICATIONS: Artificial Tears, Tylenol, vitamin C, and Aleve p.r.n. PHYSICAL EXAMINATION: VITAL SIGNS: Blood pressure is 136/89, heart rate 69, respiratory rate 20, his temperature is 97.8, 100% on room air, he is 5 feet 7 inches and 60 kg. GENERAL: Félix is a 78-year-old gentleman, who is lying supine semi-recumbent in his hospital bed. He is with his nurse. He is alert, awake, and interactive. He has good insight and answers well. LUNGS: Clear to auscultation bilaterally. HEART: Regular rate and rhythm without murmurs. ABDOMEN: Soft, flat, nontender. He told me the digital rectal exam on the was generally unremarkable except for the stool was guaiac positive. He does not recall any mass noted or any hemorrhoids. LABORATORY DATA: His white blood cell count 7.1, hemoglobin 11.6, mean cell volume is 100. His BUN is slightly up at 30, creatinine 0.95. Liver function tests are negative. Albumin is 4 and his lipase is negative. RADIOGRAPHIC STUDIES: None. ASSESSMENT AND PLAN: Félix is a 78-year-old gentleman, who presents with epigastric abdominal pain going through to his back, which suggests he could have a gastric and/or duodenal ulcer. He certainly has some level of a gastrointestinal bleed with some maroon-colored stool with bowel movements and of course it is guaiac positive and we can see that his hemoglobin is dropping, his BUN is up a bit. At this point, he has been hemodynamically stable and admitted to the internal medicine service. He will be started on IV fluids and proceed with his bowel prep currently. We will be made n.p.o. around 3 a.m. and hopefully we can do his upper and lower endoscopy in the middle of the day once we have staff available to us. I have reviewed with Félix the above findings. We reviewed upper and lower endoscopy. He understands there is risk including, but not limited to gas bloating, crampy abdominal pain, bleeding, perforation requiring surgery, and missed diagnosis. He also understands the need for IV conscious sedation. He had expressed understanding and wished to proceed. Electronically Signed By: DONY CARNEY MD 05/01/19 0645 PATIENT NAME: FÉLIX CALDERON CONSULTATION DATE OF : 38 REPORT #: [id number] PHYSICIAN: DONY CARNEY MD PCP: KURTIS NORTH MD REPORT IS CONFIDENTIAL AND NOT TO BE RELEASED WITHOUT AUTHORIZATION [address] [place], [place] [address] Signed Dony Carney MD ALB/MODL /[id number] cc: MD Dony Doyle MD Copies: KURTIS NORTH MD, ANDREW L MD ~ Electronically Signed By: DONY CARNEY MD 05/01/19 0645 PATIENT NAME: FÉLIX CALDERON CONSULTATION DATE OF : 38 REPORT #: [id number] PHYSICIAN: DONY CARNEY MD PCP: KURTIS NORTH MD REPORT IS CONFIDENTIAL AND NOT TO BE RELEASED WITHOUT AUTHORIZATION
--- NOTE | 2019-05-01 07:25 | NUR ---
BEDSIDE REPORT RECEIVED FROM RACHAEL MACIAS. PATIENT AWAKE LYING IN BED. WHITE BOARD UPDATED. DENIES ANY NEEDS AT THIS TIME. FLEET ENEMA AND CALCIUM GLUCONATE ORDERED BY . NEXT ACCU CHECK AT 0800. TELE [address] SINUS RHYTHM. NPO AT THIS TIME.
--- NOTE | 2019-05-01 07:47 | NUR ---
pt lying on right side now after giving fleet enema. instructed to stay on side and hold contents in rectum for at least 20 minutes if possible. he understands directions. calcium gluconate infusing now.
--- NOTE | 2019-05-01 10:13 | NUR ---
IVF DECREASED TO 75ML/HR. PATIENT HAS NO NEEDS AT THIS TIME. DR LEBRON IN TO SEE PATIENT. BSC EMPTIED.
--- NOTE | 2019-05-01 10:43 | NUR ---
PATIENT IN BED RESTING WITH EYES CLOSED. CALL LIGHT IN REACH. NO FURTHER NEEDS AT THIS TIME.
--- NOTE | 2019-05-01 11:48 | NUR ---
PATIENT OFF FLOOR FOR PROCEDURE. BLENDER/BRAZE APPLICATOR CONSULT ADDED PER 'S REQUEST FOR INFO ON GUT VALENTÍN REPLACEMENT POST COLONOSCOPY. BLENDER/BRAZE APPLICATOR MADE AWARE.
--- NOTE | 2019-05-01 12:48 | NUR ---
05/01/19 1248 Chantal Han 1241- PT ARRIVES TO PACU NONAROUSABLE TO NOXIOUS STIMULI WITH AN OPA AND AN NPA IN PLACE. RESP EVEN AND UNLABORED. OXYGEN SAT HIGH 90'S TO 100% ON 10L VIA MASK.
--- NOTE | 2019-05-01 13:12 | NUR ---
PT TAKEN TO OR FOR SURGERY. WILL FOLLOW NEEDED
--- NOTE | 2019-05-01 13:20 | NUR ---
PT ARRIVED BACK TO THE FLOOR WITH AHMET PORTRAIT PAINTER. PT IS GROGGY, BUT SLOWLY RESPONDS. HOLDING WATER AT THIS TIME, PT COUGHS WHILE DRINKING. PT'S HAS MANY QUESTIONS, WOULD LIKE TO TALK TO DR CARNEY. DR CARNEY IS AWARE, HE IS GOING TO ANOTHER PROCEDURE. STATED "THERE IS NOTHING CONCERNING. WE DIDN'T FIND ANY BLEEDING. DR LEBRON CAN EXPLAIN THE REST." WILL UPDATE FAMILY. VSS.
--- NOTE | 2019-05-01 14:39 | NUR ---
GABRIELLE MILES, IS IN ROOM DISCUSSING DIET WITH PT AND HIS PER THEIR REQUEST. FABIAN RX, WAS IN ROOM DISCUSSING HOME MEDICATIONS.
--- NOTE | 2019-05-01 14:49 | NUR ---
PATIENT IN BED TALKING WITH HEALTH PROFESSOR. CALL LIGHT IN REACH. NO FURTHER NEEDS AT THIS TIME.
[2019-05-01] MEDS ORDERED: ALEVE220 MG PO (15:05)
[2019-05-01] MEDS ORDERED: TURMERIC500 M2 PO (15:07)
[2019-05-01] MEDS ORDERED: MAGNESIUM400 M1 PO (15:08)
--- NOTE | 2019-05-01 15:08 | NUR ---
PATIENT AND ASKING ABOUT EDUCATION FOR IMPROVING GUT VALENTÍN AFTER COLONSCOPY. PATIENT'S , SPRING, STATED IN THE PAST SHE HAD A COLONSCOPY AND HAD GUT ISSUES SUCH CONSTIPATION FOR 5 YEARS AFTER. SHE IS HOPING TO PREVENT THAT IN FÉLIX. I PROVIDED A HANDOUT ON PREBIOTICS AND PROBIOTICS AND EXPLAINED WHAT EACH IS. FOOD SOURCES OF PREBIOTICS LISTED. THE EASIEST PROBIOTIC IS YOGURT. FÉLIX WASN'T EATING YOGURT REGULARLY AT HOME, BUT LIKES IT. EXPLAINED OTHER PROBIOTICS SUCH TEMPEH, MISO, AND KIMCHI. THEIR QUESTIONS WERE ANSWERED. MY NAME AND NUMBER PROVIDED. THEY APPRECIATED THE INFO. WILL CONTINUE TO BE AVAILABLE IF NEEDED.
[2019-05-01] MEDS ORDERED: VITAMIN D3125 MC2 PO (15:09)
[2019-05-01] MEDS ORDERED: SYSTANE GEL10 GM OD (15:10)
--- NOTE | 2019-05-01 15:10 | NUR ---
MED REC COMPLETE
--- NOTE | 2019-05-01 15:24 | NUR ---
RN GAVE PT AN ENSURE AND APPLESAUCE. REQUESTED WIDE BORE STRAW WITH EACH MEAL. PT'S WAS UPDATED ON THE VISITOR RESTRICTIONS IN THE HOSPITAL. VERBALIZED UNDERSTANDING.
--- NOTE | 2019-05-01 15:31 | OR ---
[facility] [address] [place], [place] [address] Signed DATE OF OPERATION: 05/01/2019 SURGEON: Dony Carney MD PREOPERATIVE DIAGNOSES: 1. Anemia. 2. Epigastric abdominal pain. 3. Rectal bleeding. 4. Guaiac-positive stool. POSTOPERATIVE DIAGNOSES: 1. Possible healing duodenal ulcer with moderate stricture (less than or equal to 10 mm) at juncture of pyloric bulb and 2nd portion of the duodenum. 2. Moderate-sized hiatal hernia (40-35 cm). 3. Mgpbpki-uq-yqqcyxpl sigmoid diverticulosis. 4. Moderate internal hemorrhoids. PROCEDURES: 1. EGD with CLOtest and biopsy of the pyloric bulb and antrum. 2. Colonoscopy without biopsy. ESTIMATED BLOOD LOSS: None. INDICATIONS: Félix is a 78-year-old gentleman, who has come to the hospital a couple of times with what appears to be a GI bleed. He has dropped his hemoglobin several grams. He was admitted to the Internal Medicine Service. He was placed on a bowel regimen. I was asked to see him in consultation as a local general surgeon on-call. He told me he has had some epigastric abdominal pain and he has noticed some dark blood per rectum and mixed with his stool. He ended up initially with a hemoglobin 11.6, but it dropped down to 9.9. His BUN was a little up at 30, but it cleared out nicely with the laxatives. He told me he has only taken Aleve a couple times in his life and he likes to avoid medications if he can. We know he has acid reflux, but I do not see any specific medication for that. In the past, he was on Coumadin for DVT, but once that resolved, he stopped the Coumadin. I had met with Félix last night here in the hospital and gone over all this with him in detail. He told me he had a colonoscopy about 15 years ago around age 63. To his knowledge, no followup was needed. I reviewed with Félix upper and lower endoscopy in detail. We reviewed the risks including, but not limited to gas bloating, crampy abdominal pain, bleeding, perforation requiring surgery, and missed Electronically Signed By: DONY CARNEY MD 05/01/19 1531 PATIENT NAME: FÉLIX CALDERON OPERATIVE REPORT DATE OF : 38 REPORT #: [id number] PHYSICIAN: DONY CARNEY MD PCP: KURTIS SHEETS MD REPORT IS CONFIDENTIAL AND NOT TO BE RELEASED WITHOUT AUTHORIZATION [facility] [address] [place], [place] [address] Signed diagnosis. I also explained to Félix that in these acute situations, particularly with the possibility of blood in his stomach, we always have an anesthesia provider help us with increased airway monitoring and sedation with propofol. He had expressed understanding and wished to proceed. PROCEDURE NOTE: I had again met with Félix early this morning and then again just before the procedure with Félix and his . I reviewed their questions in detail. After that, Félix was taken into our endoscopy suite and placed in a supine semi-recumbent position. The posterior oropharynx was anesthetized with Hurricaine spray. A bite block was utilized for the case. He was given IV sedation per our nurse risk management intern. The adult gastroscope was introduced and advanced into the pyloric bulb under direct visualization of the camera without difficulty. We bumped into his stricture at the juncture of the bulb with the 2nd portion of the duodenum. It did not appear cancerous whatsoever. It appeared quite healthy. When I brought the scope back, there was a little blood on one side. Whether or not there was an actual ulcer there, it was hard to know for sure. We went ahead and took a biopsy of that area. I suspect this may be a chronic stricture. He could certainly be dilated in the future with the balloon if necessary. The pyloric bulb itself was unremarkable. His stomach was not particularly concerning. Certainly, no ulcers or any blood in the stomach whatsoever. We took a biopsy of the antrum for CLOtest as well as pathologic review. Upon retroflexion of scope, he does have a moderate-sized hiatal hernia. It measured out from 40-35 cm. There was no gastric or esophageal varices. No Dank's ulcer and no Renetta-Hawkins tear. It was a little difficult to ascertain the exact GE junction, but there may or may not be a Schatzki's ring there as well. Again, he probably needs a barium swallow to evaluate both the distal esophagus and the duodenum. There was no Vasquez's mucosa and no distal esophagitis. The middle and upper esophagus were unremarkable. After this, the gas was suctioned out and the gastroscope removed. Félix tolerated his procedure quite well. Félix was then rotated into the left lateral decubitus position. He was maintained on IV sedation per our nurse risk management intern. It should be noted that he did require airway control throughout the procedure. Consequently, it was demarco to have our anesthesia provider present. A digital rectal exam was performed and this was unremarkable. No mass. Good sphincter tone. Not much of anything in the way of external hemorrhoids. The adult colonoscope was introduced then and advanced all around into the cecum under direct visualization of the camera without difficulty. His prep was good. The scope was slowly withdrawn. We could easily see the appendiceal orifice and the ileocecal valve. We saw no polyps or inflammatory changes throughout the colon. There was no evidence of any old or new blood throughout the colon or rectum. He does have moderate sigmoid diverticulosis. They are moderate in size, moderate in number, and scattered about. Upon retroflexion of scope in the rectum, we can see he does have igxvuuh-[id number] internal hemorrhoids. He has one hemorrhoid, it a little larger Electronically Signed By: DONY CARNEY MD 05/01/19 1531 PATIENT NAME: FÉLIX CALDERON OPERATIVE REPORT DATE OF : 38 REPORT #: [id number] PHYSICIAN: DONY CARNEY MD PCP: KURTIS SHEETS MD REPORT IS CONFIDENTIAL AND NOT TO BE RELEASED WITHOUT AUTHORIZATION [facility] [address] [place], [place] [address] Signed than the others. No evidence of any recent or acute bleeding from that hemorrhoid. After this, the gas was suctioned out and colonoscope removed. Félix tolerated the procedure quite well. RECOMMENDATIONS: Félix will be returned to his room under the Hospitalist Service. We will put him on full liquid diet and he will continue on his proton pump inhibitor twice a day. He will have a followup CBC in the morning. Dony Carney MD ALB/ARTURL /[id number] cc: Kurtis Sheets MD Copies: KURTIS SHEETS MD ~ Electronically Signed By: DONY CARNEY MD 05/01/19 1531 PATIENT NAME: YUMIKOFÉLIX VANE OPERATIVE REPORT DATE OF : 38 REPORT #: [id number] PHYSICIAN: DONY CARNEY MD PCP: KURTIS SHEETS MD REPORT IS CONFIDENTIAL AND NOT TO BE RELEASED WITHOUT AUTHORIZATION
--- NOTE | 2019-05-01 18:37 | NUR ---
PT IS ALERT AND ORIENTED X3. INDEPENDENT IN ROOM. SL. VOIDING WELL. WOULD LIKE WIDE-BORE SMOOTHIE STRAWS WITH ALL MEALS. LIKES ENSURES WITH EACH MEALS.
--- NOTE | 2019-05-01 19:00 | NUR ---
BEDSIDE REPORT RECEIVED FROM OFFGOING COLLEEN ESTES. PT SITTING IN BED. DENIES NEEDS AT THIS TIME.
--- NOTE | 2019-05-01 20:29 | EKG ---
[facility] [address] [facility] [place], [place] [address] Signed Atrial flutter with variable AV block Low voltage QRS ST \T\ T wave abnormality, consider anterior ischemia Abnormal ECG No previous ECGs available Confirmed by MATEUS LEBRON DO ([id number]) on 05/01/2019 8:29:38 PM Electronically Signed By: MATEUS LEBRON DO 05/01/192028 PATIENT NAME: FÉLIX CALDERON Electrocardiogram DATE OF : 38 PHYSICIAN: MATEUS LEBRON DO REPORT #: [id number] REPORT IS CONFIDENTIAL AND NOT TO BE RELEASED WITHOUT AUTHORIZATION
--- NOTE | 2019-05-01 20:50 | NUR ---
PT ASSESSMENT COMPLETE. PT RESTING IN BED. DENIES PAIN, NAUSEA, OR SOB. PT STATES HE IS GENERALLY FEELING VERY WELL. BT'S ACTIVE. PT DENIES ABD TENDERNESS TO PALPATION. SCHEDULED MEDICATION ADMINISTERED, EDCUATION PROVIDED REGARDING MED AND SIDE EFFECTS. PT DENIES QUESTIONS OR CONCERNS ABOUT MEDS. VS OBTAINED. HOSPITALIST IN ROOM DISCUSSING CURRENT ILLNESS WITH PT. CALL LIGHT IN REACH.
--- NOTE | 2019-05-02 00:40 | NUR ---
PT SITTING UP IN BED, FIDDLING WITH SCD HOSES. REAL ESTATE TRANSACTION COORDINATOR IN ROOM. PT STATES THAT HE DOESN'T HAVE THE STRENGTH TO DISCONNECT HOSES. REAL ESTATE TRANSACTION COORDINATOR ASSISTS PT, HE STATES "OH, MAYBE I WASN'T DOING IT RIGHT". PT UP TO BATHROOM INDEPENDENTLY, DENIES NEEDS. STATES THAT HE WILL CALL FOR NEEDS. CALL LIGHT IN REACH.
--- NOTE | 2019-05-02 02:10 | NUR ---
PT ASSESSMENT COMPLETE. UNCHANGED FROM PREVIOUS. PT DENIES PAIN, SOB, OR NAUSEA. PT EXPRESSES EXTREME GRATITUDE REGARDING HIS CARE. TELL PRIMER INSPECTOR STORIES ABOUT HOW HE MET HIS . DENIES FURTHER NEEDS AT THIS TIME. CALL LIGHT WITHIN REACH.
--- NOTE | 2019-05-02 05:53 | NUR ---
PT RESTING IN BED ON R SIDE. RESPIRATIONS EVEN AND UNLABORED. PT APPEARS TO BE SLEEPING. CALL LIGHT IN REACH.
--- NOTE | 2019-05-02 05:54 | NUR ---
PT SLEPT OFF AND ON THIS SHIFT. NO COMPLANTS. NPO EXCEPT WATER FOR AM LABS. UO QS. INDEPENDENT IN ROOM. ACCUCHECKS Q 6. IV SL.
--- NOTE | 2019-05-02 07:13 | NUR ---
BEDSIDE REPORT FROM RACHAEL MACIAS...PT ALERT IN ROOM. NO DISTRESS NOTED. NO REQUESTS
--- NOTE | 2019-05-02 07:59 | NUR ---
PT SITTING UP IN BED ALERT. NO COMPLAINTS. HE SPEAKS WELLOF HIS CARE.
--- NOTE | 2019-05-02 09:00 | NUR ---
Spoke malorie Galicia. He is dressed and ready to call his for a ride. Denies needs or c/o. Plans on dc to home.
--- NOTE | 2019-05-02 09:44 | NUR ---
PATIENT IN ROOM GETTING DRESSED, IND. CALL LIGHT IN REACH. NO FURTHER NEEDS AT THIS TIME.
[2019-05-02] MEDS ORDERED: PROTONIX40 MG PO (09:58)
[2019-05-02] MEDS ORDERED: FREESTYLE LITE1 EAC1 TD (10:00)
[2019-05-02] MEDS ORDERED: FREESTYLE FREE1 EAC1 MISC (10:01)
--- NOTE | 2019-05-02 11:14 | NUR ---
PT EDUCATION GIVEN ON SIGNS AND SYMPTOMS TO SEEK MEDICAL ATTENTION, STEPS TO MONITOR AND TREAT LOW BLOOD SUGAR AT HOME, TEST AND EMERGENCY MEDICAL ATTENTION IF NOT EFFECTIVE. EDUCATION ON MEDICATIONS, LAST DOSE AND NEXT DOSE. FOLLOW UP APPOINTMENTS. IV SITE REMOVED WNL TIP INTACT.
--- NOTE | 2019-05-02 13:41 | NUR ---
PT ALERT ORIENTED AND DRESSED FOR DC. PT IS FEELING MUCH BETTER, PLEASED THAT I STOPPED BY. PT REQUESTED I CONTACT A MUTUAL FRIEND FOR HIM, WHICH I DID. I GAVE A BLESSING TO PT, WILL FOLLOW NEEDED
--- NOTE | 2019-05-02 16:51 | PATH ---
[facility] [address] [place], [place] [address] Signed SPECIMEN(S): A PYLORIC BULB SPECIMEN(S): B ANTRUM SPECIMEN SOURCE: A. PYLORIC BULB B. ANTRUM CLINICAL HISTORY: Pre: GI bleed. Post: duodenal ulcer, mid stricture, hiatal hernia, internal hemorrhoids, diverticulosis. MICROSCOPIC DESCRIPTION: Histologic sections of all submitted blocks are examined by light microscopy. These findings, together with the gross examination, support the pathologic diagnosis. FINAL PATHOLOGIC DIAGNOSIS: A. Stomach, pyloric bulb, biopsy: - Gastro-duodenal type mucosa with mild chronic, inflammation, see Comment. - Negative for Helicobacter organisms on HE stain. - Negative for dysplasia or malignancy. - See comment. B. Stomach, antrum, biopsy: - Antral/oxyntic mucosa with chronic, inactive gastritis. - Negative for Helicobacter organisms on HE stain. - Negative for dysplasia or malignancy. COMMENT: Sections of the specimen submitted as "pyloric bulb" contains mucosa with features of both duodenal type mucosa and gastric type mucosa. No atypical significant inflammation is seen. The findings are favored to represent transitional mucosa between the pylorus and the duodenum. However, complete intestinal metaplasia of the gastric mucosa cannot be entirely excluded. Correlation with endoscopic findings is recommended. NAL:cml:C2NR GROSS DESCRIPTION: Two specimens are received in two containers, labeled "DG." A. The specimen, labeled "DG, pyloric bulb," is received in formalin and consists of a single orellana soft tissue fragment that measures 0.3 cm in greatest dimension. The specimen is entirely submitted PATIENT NAME: FÉLIX CALDERON PATHOLOGY DATE OF : 38 REPORT #: [id number] PHYSICIAN: FADIA YEAGER PCP: KRISTINE NORTH MD REPORT IS CONFIDENTIAL AND NOT TO BE RELEASED WITHOUT AUTHORIZATION [facility] [address] [id number] Signed in cassette (A1). B. The specimen, labeled "DG, antrum," is received in formalin and consists of a single orellana soft tissue fragment that measures 0.3 cm in greatest dimension. The specimen is entirely submitted in cassette (B1). AT (under the direct supervision of a pathologist) The Gross Description was prepared using a voice recognition system. The report was reviewed for accuracy; however, sound-alike word errors, addition and/or deletions may occur. If there is any question about this report, please contact Client Services. PERFORMING LABORATORY: The technical component was performed by [facility] [address] (Manager Shop: Kiarra Estes MD; CLIA# [id number]). Professional interpretation [facility] [address] [address] (CLIA# [id number]). Diagnostician: Maite Valentine MD Pathologist Electronically Signed 05/02/2019 Copies: ~ PATIENT NAME: FÉLXI CALDERON PATHOLOGY DATE OF : 38 REPORT #: [id number] PHYSICIAN: FADIA YEAGER PCP: KRISTINE NORTH MD REPORT IS CONFIDENTIAL AND NOT TO BE RELEASED WITHOUT AUTHORIZATION
== END 2019-05-02 11:55 | disposition home or self-care (01) ==
LOC: ED 15:07 → MS 15:08
PROVIDERS: Colon & Rectal Surgery; ADMIT Student in an Organized Health Care Education/Training Program
PROC: 0DJD8ZZ Inspection of Lower Intestinal Tract, Via Natural or Artificial Opening Endoscopic (ICD-10-PCS; 2019-05-01)
PROC: 0DB78ZX Excision of Stomach, Pylorus, Via Natural or Artificial Opening Endoscopic, Diagnostic (ICD-10-PCS; principal; 2019-05-01 11:30)
PROC: 0DB68ZX Excision of Stomach, Via Natural or Artificial Opening Endoscopic, Diagnostic (ICD-10-PCS; 2019-05-01 11:30)
DX: K64.8 Other hemorrhoids (principal); K29.51 Unspecified chronic gastritis with bleeding; K57.31 Diverticulosis of large intestine without perforation or abscess with bleeding; K44.9 Diaphragmatic hernia without obstruction or gangrene; I10 Essential (primary) hypertension; E16.2 Hypoglycemia, unspecified; G51.0 Bell's palsy; D50.0 Iron deficiency anemia secondary to blood loss (chronic); K21.9 Gastro-esophageal reflux disease without esophagitis; E78.00 Pure hypercholesterolemia, unspecified; E03.9 Hypothyroidism, unspecified; M79.7 Fibromyalgia; Z88.8 Allergy status to other drugs, medicaments and biological substances; Z79.899 Other long term (current) drug therapy
CPT/HCPCS: 00750; 36415; 80048; 80053; 83036; 83525; 83690; 84206; 84681; 85018; 85025; 86677; 86850; 86900; 86901; 88305; 93005; 93010; 96361; 96374; 96375; 96376; 99285; C9113; G0378; J0610; J2704; J7040; J7121

== ENCOUNTER 2020-06-20 11:11 | Emergency (ER) | payer OTHER, MEDICARE ==
[~2020-06-20] VITALS: Ht 170.2 cm; Wt 59.9 kg
[~2020-06-20 11:11] MED LIST changes: +ALEVE220 MG PO; +FREESTYLE FREE1 EAC1 MISC; +FREESTYLE LITE1 EAC1 TD; +LISINOPRIL5 MG PO; +MAGNESIUM400 M1 PO; +OCUSOFT LID SC1 EACH TOP; +PROTONIX40 MG PO; +REFRESH CELLUV1 EACH OD; +SYSTANE GEL10 GM OD; +SYSTANE NIGHTT3.5 GM OD; +TURMERIC500 M2 PO; +VITAMIN D3125 MC2 PO; +XALATAN2.5 ML OU; +[UNRECOGNIZED DRUG - OTHER] OPTH
--- OUTSIDE RECORDS SUMMARY | 2020-06-20 11:14 | XMS ---
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 Care History Medical/Surgical 05/01/2019 [facility] Patient admitted.\T\nbsp; He has a scheduled follow up already on 05/11/[address] Sheets. 05/01/2019 [facility] - Patient is currently established with [facility]. If patient is seen in the ED during business hours. Please contact CHWs at [facility]. Care Recommendation: If this patient has had 5 or more Emergency Department visits in the last 12 months.\T\nbsp; Patient will require education on the scope and purpose of the ED as an acute care provider not a Primary Care Provider and should not be utilized for chronic conditions.\T\nbsp; These are guidelines and the provider should exercise clinical judgment when providing care. E.D. VISIT COUNT (12 MO.) 1 [place] [place] TOTAL 1 NOTE: Visits indicate total known visits. ED/UCC VISIT TRACKING (12 MO.) 06/20/2020 11:12 [facility] [place] TYPE: Emergency COMPLAINT: - FELL, RIB CAGE PAIN, DIFF BREATHING INPATIENT VISIT TRACKING (12 MO.) No inpatient visits to display in this time frame [email or web address]
== END 2020-06-20 13:19 | disposition home or self-care (01) ==
LOC: ED 11:11
DX: S20.212A Contusion of left front wall of thorax, initial encounter (principal); R06.02 Shortness of breath; W01.198A Fall on same level from slipping, tripping and stumbling with subsequent striking against other object, initial encounter; E78.00 Pure hypercholesterolemia, unspecified; K21.9 Gastro-esophageal reflux disease without esophagitis; E03.9 Hypothyroidism, unspecified; Z88.8 Allergy status to other drugs, medicaments and biological substances; Z79.899 Other long term (current) drug therapy
CPT/HCPCS: 71101; 99284-25

== ENCOUNTER 2020-07-09 11:51 | Day surgery (SDC) | payer MEDICARE, OTHER ==
[~2020-07-09] VITALS: Ht 170.2 cm; Wt 59.5 kg
--- NOTE | 2020-07-09 14:57 | NUR ---
07/09/20 1457 [place] Cintron 1420 PT ARRIVED IN PACU NON RESPONSIVE TO NOXIOUS STIMULI. 1430 PT REACTIVE. REU. 1445 PT AWAKENS TO VERBAL STIMULI. SITTING UP IN BED. NO C/O'S. 1450 SIPPING ON WATER.
--- NOTE | 2020-07-11 17:07 | PATH ---
[facility] [address] [place], [place] [address] Signed SPECIMEN(S): A DUODENUM SPECIMEN(S): B ANTRUM/PYLORUS SPECIMEN(S): C LOWER ESOPHAGUS SPECIMEN(S): D MIDDLE ESOPHAGUS SPECIMEN SOURCE: A. DUODENUM B. ANTRUM/PYLORUS C. LOWER ESOPHAGUS D. MIDDLE ESOPHAGUS CLINICAL HISTORY: Esophageal dysphagia MICROSCOPIC DESCRIPTION: Histologic sections of all submitted blocks are examined by light microscopy. These findings, together with the gross examination, support the pathologic diagnosis. FINAL PATHOLOGIC DIAGNOSIS: A. Duodenum, biopsy: - Benign duodenal mucosa, negative for specific diagnostic abnormality. B. Antrum/pylorus, biopsy: - Benign gastric mucosa with slight chronic inflammation. - Negative for evidence of Helicobacter organisms on routine HE stained sections. C. Lower esophagus, biopsy: - Squamocolumnar junction with reactive epithelial features and mild chronic inflammation. - Negative for specialized intestinal metaplasia or dysplasia. D. Middle esophagus, biopsy: - Benign esophageal mucosa, negative for increased epithelial eosinophils. JVR:cml:C2NR GROSS DESCRIPTION: Four specimens are received in four containers, labeled "Good." A. The specimen, labeled and designated" Good #1, duodenum," is received in formalin and consists of two orellana soft tissue fragments that measure 0.3 cm in greatest dimension. The specimen is entirely submitted in cassette (A1). B. The specimen, labeled and designated "Good #2, antrum/pylorus," is received in formalin and consists of two orellana soft tissue fragments that measure 0.4 cm PATIENT NAME: FÉLIX CALDERON PATHOLOGY DATE OF : 38 REPORT #: [id number] PHYSICIAN: FADIA PATHOLOGY PCP: KRISTINE NORTH MD REPORT IS CONFIDENTIAL AND NOT TO BE RELEASED WITHOUT AUTHORIZATION [facility] [address] [place], [place] [address] Signed in greatest dimension. The specimen is entirely submitted in cassette (B1). C. The specimen, labeled and designated "Juno #3, lower esophagus," is received in formalin and consists of three orellana soft tissue fragments that measure 0.3 cm in greatest dimension. The specimen is entirely submitted in cassette (C1). D. The specimen, labeled and designated" Juno #4, middle esophagus," is received in formalin and consists of three orellana soft tissue fragments that measure 0.2 to 0.3 cm in greatest dimension. The specimen is entirely submitted in cassette (D1). VB (under the direct supervision of a pathologist) The Gross Description was prepared using a voice recognition system. The report was reviewed for accuracy; however, sound-alike word errors, addition and/or deletions may occur. If there is any question about this report, please contact Client Services. PERFORMING LABORATORY: The technical component was performed by [employer] [facility] [address] [place] [address] (Distribution Warehouse Manager: Kiarra Estes MD; CLIA# [id number]). Professional interpretation was performed by [employer] [facility], [address] [place] [id number]. Diagnostician: Wild Suero MD Pathologist Electronically Signed 07/11/2020 Copies: ~ PATIENT NAME: FÉLIX CALDERON PATHOLOGY DATE OF : 38 REPORT #: [id number] PHYSICIAN: FADIA PATHOLOGY PCP: KRISTINE NORTH MD REPORT IS CONFIDENTIAL AND NOT TO BE RELEASED WITHOUT AUTHORIZATION
--- NOTE | 2020-07-20 10:51 | OR ---
[facility] [address] [place], [place] [address] Signed DATE OF OPERATION: 07/09/2020 SURGEON: Harlan Crawford MD PREOPERATIVE DIAGNOSIS: Persistent dysphagia. POSTOPERATIVE DIAGNOSES: 1. Distal esophageal stricture (benign, short). 2. Small hiatal hernia. PROCEDURE: Esophagogastroduodenoscopy with biopsy. ANESTHESIA: Intravenous sedation, fentanyl 100 mcg and Versed 4 mg. INDICATION: This 79-year-old white man is patient Dr. Kurtis Sheets. I have known him for a number of years. He has had dysphagia, which has not been progressive, but has been persistent. He has had no hematemesis. He is admitted to undergo upper endoscopy to better characterize the problem, understand the risks of bleeding, infection, and perforation. FINDINGS: There is a very smooth concentric benign-appearing distal esophageal stricture consistent with an advanced Schatzki's ring essentially. There was an associated hiatal hernia as well. The stomach and duodenum were otherwise normal. CLOtest was negative. The ring was multiply biopsied breaking up the fibrous structure of the ring anticipating PPI use and possibly future dilation depending on improvement. DESCRIPTION OF PROCEDURE: The patient was brought to the endoscopy suite and placed in lateral decubitus position after undergoing topical lidocaine hypopharyngeal spray anesthesia. He was given intravenous sedation with full cardiopulmonary monitoring to the point of slurred speech and nystagmus. An Olympus video upper endoscope was passed in the hypopharynx. The vocal cords were normal. Scope was advanced to the esophagus without problem. The scope was passed down the esophagus. In the distal portion, there was a smooth and concentric Schatzki's ring type stricture though thicker than typical. The scope was passed in the stomach, which was insufflated with air. Rugal folds were normal. The antrum was Electronically Signed By: HARLAN CRAWFORD MD 07/20/20 1051 PATIENT NAME: FÉLIX CALDERON OPERATIVE REPORT DATE OF : 38 REPORT #: [id number] PHYSICIAN: HARLAN CRAWFORD MD PCP: KURTIS SHEETS MD REPORT IS CONFIDENTIAL AND NOT TO BE RELEASED WITHOUT AUTHORIZATION [facility] [address] [place], [place] [address] Signed normal as was the pylorus. The scope was passed through the pylorus into the duodenum. The duodenum was biopsied to assess for celiac disease. The scope was withdrawn and biopsies taken of the antrum for both JUAN MIGUEL and pathologic testing. Retroflexed view showed a hiatal hernia. Scope was straightened and withdrawn to the distal esophagus where multiple biopsies were taken of the esophageal ring to break it up. The scope was further withdrawn to the mid esophagus where all biopsies were additionally taken. This was to rule out eosinophilic esophagitis additionally. Withdrawal of the scope allowed for visualization of the cords which were normal. The scope was removed and the patient was taken to the recovery room in good condition. CONCLUDING DIAGNOSIS: Dysphagia, likely related to benign distal esophageal stricture. PLAN: We will prescribe Prilosec 20 mg p.o. daily. We will see him back in 2 to 3 months and assess his progress as regards to dysphagia with PPI use and break up of the stricture endoscopically. Whether or not he will require a formal dilation remains to be determined. Harlan Crawford MD JM/MODL /[id number] cc: Kurtis Sheets MD Copies: KURTIS SHEETS MD ~ Electronically Signed By: HARLAN CRAWFORD MD 07/20/20 1051 PATIENT NAME: FÉLIX CALDERON OPERATIVE REPORT DATE OF : 38 REPORT #: [id number] PHYSICIAN: HARLAN CRAWFORD MD PCP: KURTIS SHEETS MD REPORT IS CONFIDENTIAL AND NOT TO BE RELEASED WITHOUT AUTHORIZATION
== END 2020-07-09 15:25 | disposition home or self-care (01) ==
LOC: DS 11:51 → OPS 11:51 → DS 13:00 → OPS 13:00
PROVIDERS: ATTEND Surgery
PROC: 0DB58ZZ Excision of Esophagus, Via Natural or Artificial Opening Endoscopic (ICD-10-PCS; principal; 2020-07-09 13:00)
DX: K22.2 Esophageal obstruction (principal); K44.9 Diaphragmatic hernia without obstruction or gangrene; K29.70 Gastritis, unspecified, without bleeding; K20.90 Esophagitis, unspecified without bleeding; G50.0 Trigeminal neuralgia; I10 Essential (primary) hypertension; G47.30 Sleep apnea, unspecified
CPT/HCPCS: 99153; G0500; J2250; J3010; J7121

== ENCOUNTER 2021-01-11 01:54 | Emergency (ER) | payer MEDICARE, OTHER ==
[~2021-01-11] VITALS: Ht 170.2 cm; Wt 66.7 kg
[2021-01-11] MEDS ORDERED: LEVOFLOXACIN500 MG PO (05:28)
[2021-01-11] MEDS ORDERED: HYDROCODON-ACE1 EA10 PO (05:28)
[2021-01-11] MEDS ORDERED: FLUVOXAMINE MAL25 MG PO (15:41)
[2021-01-11] MEDS ORDERED: SILDENAFIL20 MG PO (15:41)
== END 2021-01-11 05:45 | disposition home or self-care (01) ==
LOC: ED 01:54
DX: N41.9 Inflammatory disease of prostate, unspecified (principal); D72.829 Elevated white blood cell count, unspecified; Z88.8 Allergy status to other drugs, medicaments and biological substances; Z79.899 Other long term (current) drug therapy
CPT/HCPCS: 74177; 80053; 81001; 83690; 85025; 96375; 99284-25; J1170; J2405; Q9967

== ENCOUNTER 2021-01-11 15:27 | Emergency (ER) | payer MEDICARE, OTHER ==
[~2021-01-11] VITALS: Ht 170.2 cm; Wt 66.7 kg
[~2021-01-11 15:27] MED LIST changes: +HYDROCODON-ACE1 EA10 PO; +LEVOFLOXACIN500 MG PO
--- OUTSIDE RECORDS SUMMARY | 2021-01-11 15:34 | XMS ---
PreManage Notification: FÉLIX CALDERON Security Sign Writer Hand Events No recent Security Events currently on file CRITERIA MET - [facility] - 2 Visits in 30 Days CARE PROVIDERS KRISTINE SHEETS Internal Medicine 05/01/2019-Current PHONE: Unknown Denny has no Care Guidelines for this patient. Care History Medical/Surgical 05/01/2019 [facility] Patient admitted.\T\nbsp; He has a scheduled follow up already on 05/11/[address] Sheets. 05/01/2019 [facility] - Patient is currently established with [facility]. If patient is seen in the ED during business hours. Please contact CHWs at [facility]. Care Recommendation: If this patient has had [...] providing care. E.D. VISIT COUNT (12 MO.) [address] [facility] TOTAL 3 NOTE: Visits indicate total known visits. ED/UCC VISIT TRACKING (12 MO.) 01/11/2021 15:28 [facility] [place] TYPE: Emergency COMPLAINT: - PROBLEM URINATING 01/11/2021 01:55 [facility] [place] TYPE: Emergency COMPLAINT: - LT SIDED ABD PAIN 06/20/2020 11:[address] 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
[2021-01-11] MEDS ORDERED: FLUVOXAMINE MAL25 MG PO (15:41)
[2021-01-11] MEDS ORDERED: SILDENAFIL20 MG PO (15:41)
== END 2021-01-11 18:30 | disposition home or self-care (01) ==
LOC: ED 15:27
PROC: 4A0D7LZ Measurement of Urinary Volume, Via Natural or Artificial Opening (ICD-10-PCS; principal; 2021-01-11)
DX: N41.9 Inflammatory disease of prostate, unspecified (principal); Z88.8 Allergy status to other drugs, medicaments and biological substances; Z79.899 Other long term (current) drug therapy
CPT/HCPCS: 51798; 99283-25

== ENCOUNTER 2021-02-10 11:37 | Emergency (ER) | payer MEDICARE, OTHER ==
[~2021-02-10] VITALS: Ht 170.2 cm; Wt 66.7 kg
[~2021-02-10 11:37] MED LIST changes: +FLUVOXAMINE MAL25 MG PO; +SILDENAFIL20 MG PO
--- OUTSIDE RECORDS SUMMARY | 2021-02-10 12:29 | XMS ---
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 Care History Medical/Surgical 01/13/2021 [facility] Follow up visit with Dr. Sheets on 02/14/2021. 05/01/2019 [facility] Patient admitted.\T\nbsp; He has a scheduled follow up already on 05/11/[address] Sheets. 05/01/2019 [facility] - Patient is currently established with [facility]. If patient is seen in the ED during business hours. Please contact CHWs at [facility]. Care Recommendation: If this patient [...] providing care. E.D. VISIT COUNT (12 MO.) 4 [facility] [place] TOTAL 4 NOTE: Visits indicate total known visits. ED/UCC VISIT TRACKING (12 MO.) 02/10/2021 11:38 [facility] [place] TYPE: Emergency COMPLAINT: - FALL, CHIN LACERATION, HEAD INJURY 01/11/2021 15:28 [facility] [place] TYPE: Emergency COMPLAINT: - PROBLEM URINATING DIAGNOSES: - Other halfway (current) drug therapy - Dysuria - Allergy status to other drugs, medicaments and biological substances - Inflammatory disease of prostate, unspecified 01/11/2021 01:55 [facility] [place] TYPE: Emergency COMPLAINT: - LT SIDED ABD PAIN DIAGNOSES: - Inflammatory disease of prostate, unspecified - Left lower quadrant pain - Elevated white blood cell count, unspecified - Other halfway (current) drug therapy - Allergy status to other drugs, medicaments and biological substances 06/20/2020 11:12 [facility] [place] TYPE: Emergency COMPLAINT: - FELL, RIB CAGE PAIN, DIFF BREATHING DIAGNOSES: - Contusion of left front wall of thorax, initial encounter - Pure hypercholesterolemia, unspecified - Pleurodynia - Shortness of breath - Gastro-esophageal reflux disease without esophagitis - Fall on same level from slipping, tripping and stumbling with subsequent striking against other object, initial encounter - Other halfway (current) drug therapy - Hypothyroidism, unspecified - Allergy status to other drugs, medicaments and biological substances INPATIENT VISIT TRACKING (12 MO.) No inpatient visits to display in this time frame [email or web address]
--- NOTE | 2021-02-10 20:03 | EKG ---
[facility] [address] [facility] [place] [address] Signed Normal sinus rhythm Right bundle branch block Abnormal ECG When compared with ECG of 30-APR-2019 19:34, Sinus rhythm has replaced Atrial flutter Right bundle branch block is now present Confirmed by MATEUS LEBRON DO ([id number]) on 02/10/2021 8:03:04 PM Electronically Signed By: MATEUS LEBRON DO 02/10/212002 PATIENT NAME: FÉLIX CALDERON Electrocardiogram DATE OF : 38 PHYSICIAN: MATEUS LEBRON DO REPORT #: [id number] REPORT IS CONFIDENTIAL AND NOT TO BE RELEASED WITHOUT AUTHORIZATION
== END 2021-02-10 16:03 | disposition home or self-care (01) ==
LOC: ED 11:37
DX: S01.81XA Laceration without foreign body of other part of head, initial encounter (principal); S16.1XXA Strain of muscle, fascia and tendon at neck level, initial encounter; W18.39XA Other fall on same level, initial encounter; E78.00 Pure hypercholesterolemia, unspecified; K21.9 Gastro-esophageal reflux disease without esophagitis; E03.9 Hypothyroidism, unspecified; Z88.8 Allergy status to other drugs, medicaments and biological substances; Z79.899 Other long term (current) drug therapy
CPT/HCPCS: 12052; 70450; 72125; 80053; 83735; 84484; 85025; 90471; 90715; 93005; 93010; 99284-25